=== PATIENT | female | born 1975 | race Two or more races ===

== ENCOUNTER 2025-03-17 15:45 | Emergency (ER) | payer MEDICAID, SELFPAY ==
[2025-03-17 15:47] VITALS: BMI 32.1
[2025-03-17 16:07] VITALS: BP 111/77; PULSE 103; RESP 19; TEMP 37.6; O2SAT 96
--- NOTE | 2025-03-17 16:20 | EDNOTE_ITS ---
ED General RME/HPI General Chief complaint: General Adult/Misc Complain Stated complaint: LUMBS ON LEFT BREAST Time Seen by Provider: 03/17/25 16:17 Arrival date/time: 03/17/25 15:45 Mode of arrival: ambulatory Limitations: no limitations RME / HPI RME / HPI narrative: patient presents with left breast swelling. denies trauma, fever, nipple discharge. no acute changes. unlear how long has had lump in breast. Related Data Previous Rx's ?Medication ?Instructions ?Recorded cyclobenzaprine 5 mg tablet 5 mg PO Q8H PRN muscle spa sm #14 10/30/23 tabs ibuprofen 800 mg tablet (IBU) 800 mg PO Q8H #20 tabs 0 10/30/23 Allergies Allergy/AdvReac Type Severity Reaction Status Date / Time cephalexin (From Keflex) Allergy Verified 03/17/25 15:47 Penicillins Allergy Verified 03/17/25 15:47 ED Exam General Limitations: Present no limitations General appearance: Present alert and in no apparent distress Head Head exam: Present atraumatic and normocephalic Eye Eye exam: Present normal appearance, PERRL and EOMI ENT ENT exam: Present normal exam, normal oropharynx and mucous membranes moist Neck Neck exam: Present normal inspection, full ROM and trachea midline; Absent tenderness Chest Chest inspection: Present normal inspection, symmetric chest wall rise and other (ttp at left lateral breast, mobile 1 cm lesion appreciated , no erythema/fluctuance/crepitus/erythema/nipple retraction/nipple dc) Respiratory Respiratory exam: Present normal lung sounds bilaterally; Absent respiratory distress, wheezes or stridor Cardiovascular Cardiovascular exam: Present regular rate and normal rhythm Abdominal Exam Abdominal exam: Present soft; Absent distention, tenderness, guarding or rebound Extremities Exam Extremities exam: Present normal inspection Back Exam Back exam: Present normal inspection Neurological Exam Neurological exam: Present alert, oriented X3 and CN II-XII intact Psychiatric Psychiatric exam: Present normal affect Skin Skin exam: Present warm, dry and intact Course Quality Measures none Orders Category Date Time Status Ketorolac Inj [Toradol Inj] Med 03/17/25 16:20 Discontinued 15 mg IM X1 ONE Vital Signs Vital signs: Vital Signs Temperature 99.6 F 03/17/25 16:07 Pulse Rate 103 H 03/17/25 16:07 Respiratory Rate 19 03/17/25 16:07 Blood Pressure 111/77 03/17/25 16:07 Pulse Oximetry (%) 96 03/17/25 16:07 Oxygen Delivery Method Room Air 03/17/25 16:07 Discharge Plan Plan Patient Disposition: HOME (Self Care) Prescriptions/Referrals Prescriptions/Med Rec: No Action cyclobenzaprine 5 mg tablet 5 mg PO Q8H PRN (Reason: muscle spasm) Qty: 14 0RF ibuprofen [IBU] 800 mg tablet 800 mg PO Q8H Qty: 20 0RF Problem List Clinical Impression: Acute breast pain Patient/Caregiver Discharge Instructions Education Materials: ED Breast Lump, Uncertain Cause Additional Instructions: It is important that you establish care with your primary care doctor, request an ultrasound of the left breast as well as a mammogram. Return immediately if you develop redness, warmth, fever nipple changes or any other symptom of concern. Print Language: Indonesian Stand Alone Forms: Ashly Award Info., Patient Portal Info Letter MDM Narrative [facility] hospital course: patient w/ mobile area of swelling approx 1 cm in left breast. no signs of infection. patient w/o nipple retraction/dc . no chest pain or diff breathing. No weight loss. advised to follow up with pcp to obtain a breast u/s and mammogram Clinical Information Provided by patient Medical Records Reviewed [facility] Meds/Rx Considered, not Ordered None Labs/Rad/Tests considered, not Ordered None Chronic Illness/Social Conditions which may negatively complicate care or outcome(s)-explain: None or not applicable Lab Interpretation Labs: none Imaging Imaging interpretation: none Medication Administration(s) none Medication Administration History Discontinued Medications Ketorolac Tromethamine (Ketorolac Inj 60 Mg/2 Ml Vial) 15 mg IM X1 ONE Stop: 03/17/25 16:21 Last Admin: 03/17/25 16:31 Dose: 15 mg Documented By: Diagnosis Differential diagnosis: left breat lump Dispositon Disposition: Discharge Home
[2025-03-17] MEDS: KETOROLAC INJ 60 MG/2 ML VIAL 15 MG IM (16:31)
== END 2025-03-17 16:36 | disposition home or self-care (01) ==
PROVIDERS: Emergency Provider Emergency Medicine; PCP Family Medicine
DX: N64.4 Mastodynia (principal); N63.20 Unspecified lump in the left breast, unspecified quadrant
CPT/HCPCS: 96372; 99282; J1885

== ENCOUNTER 2025-04-12 14:36 | Emergency (ER) | payer MEDICAID, SELFPAY ==
[2025-04-12 14:59] VITALS: BP 114/80; PULSE 79; RESP 18; TEMP 36.6; O2SAT 98
--- NOTE | 2025-04-12 15:07 | XR_ITS ---
Examination: Breast ultrasound, unilateral, left Date and time of exam: April 12, 2025 1632 hrs. Indications: Palpable lump left breast note is beginning 3 months ago and 11:00 position, family history breast cancer Technique: Real-time tyson scale ultrasonographic imaging performed left breast including all 4 quadrants as well as nipple retroareolar and axillary region. Findings: Retroareolar solid mass spiculated margins, 19 x 14 x 17 mm Also noted left axillary mass which appears to be an abnormal lymph node, measuring 10 mm Impression: BI-RADS Category 4: Suspicious for malignancy Suspicious mass retroareolar region left breast as well as suspicious left axillary lymph node Biopsy of both lesions is needed to exclude carcinoma These lesions are amenable to sonographically guided breast biopsy for diagnosis Recommend follow-up diagnostic mammography and right breast sonography to complete the workup
[2025-04-12 15:29] LABS: Basophils # (Auto) 0.0 Thou/mm3 (0.0-0.2); Basophils % (Auto) 1 % (0-2.5); Eosinophils # (Auto) 0.2 Thou/mm3 (0.0-0.5); Eosinophils % (Auto) 4 % (0-10); Hematocrit 41.6 % (36.0-46.0); Hemoglobin 14.3 g/dL (12.0-16.0); Immature Granulocytes Auto 0.01 Thou/mm3 (0.00-0.00); Lymphocytes # (Auto) 2.1 Thou/mm3 (1.0-4.8); Lymphocytes % (Auto) 37 % (10-50); Mean Corpuscular HGB Conc 34.4 g/dl (31.0-37.0); Mean Corpuscular Hemoglobin 31.2 pg (25.0-35.0); Mean Corpuscular Volume 91 fL (80-100); Monocytes # (Auto) 0.3 Thou/mm3 (0.0-0.8); Monocytes % (Auto) 5 % (0-12); Neutrophils # (Auto) 3.0 Thou/mm3 (1.8-7.7); Neutrophils % (Auto) 54 % (37-80); Nucleated Red Blood Cell # 0.00 Thou/mm3 (0.00-0.00); Nucleated Red Blood Cell % 0 /100 WBC (0); Platelet Count 223 Thou/mm3 (140-440); RDW Standard Deviation 40.5 fL (36.4-46.3); Red Blood Count 4.58 Miln/mm3 (4.00-5.20); White Blood Count 5.6 Thou/mm3 (3.6-11.0)
[2025-04-12 15:53] LABS: Alanine Aminotransferase 21 U/L (10-49); Albumin, Serum 4.6 gm/dL (3.5-5.0); Albumin/Globulin Ratio 1.4 (1.2-2.2); Alkaline Phosphatase 73 U/L (46-116); Anion Gap 8 (7-16); Aspartate Amino Transferase 26 U/L (0-34); BUN/Creatinine Ratio 10 Ratio (12-20); Bilirubin,Total 0.8 mg/dL (0.3-1.2); Blood Urea Nitrogen 8 mg/dL (9-23); C-Reactive Protein < 0.5 mg/dL (0.0-0.9); Calcium 9.6 mg/dL (8.3-10.6); Calcium (Corrected) 9.6 mg/dL (8.5-10.1); Carbon Dioxide 28.9 mMol/L (20.0-31.0); Chloride 105 mMol/L (98-107); Creatinine (Component) 0.8 mg/dL (0.6-1.3); Globulin 3.3 gm/dL (2.3-3.5); Glucose 90 mg/dL (74-106); Osmolality,Calculated 281 (275-295); Potassium 4.0 mMol/L (3.4-5.1); Sodium 142 mMol/L (136-145); Total Protein 7.9 gm/dL (5.7-8.2); eGFR > 60 See Note
--- NOTE | 2025-04-12 17:00 | PD.EDRME ---
Rapid Medical Screening Exam RME Arrival date/time: 04/12/25 14:36 49-year-old female presents to the Emergency Department for complaint of left breast pain and indentation of the left breast Patient reports she has had outpatient imaging and is scheduled to have mammography done next month Chief Complaint: Chest Pain Time Seen by Provider: 04/12/25 15:07 Vital signs: Vital Signs Temperature 98 F 04/12/25 14:59 Pulse Rate 79 04/12/25 14:59 Respiratory Rate 18 04/12/25 14:59 Blood Pressure 114/80 04/12/25 14:59 Pulse Oximetry (%) 98 04/12/25 14:59 Oxygen Delivery Method Room Air 04/12/25 14:59
--- NOTE | 2025-04-12 17:22 | EDNOTE_ITS ---
ED Chest Pain RME/HPI General Chief Complaint: Chest Pain Stated Complaint: LT BREAST PAIN, LUMP NOTED. PENDING US Time Seen by Provider: 04/12/25 15:07 Arrival date/time: 04/12/25 14:36 49-year-old female presents to the Emergency Department for complaint of left breast pain and indentation of the left breast Patient reports she has had outpatient imaging and is scheduled to have mammography done next month Limitations: no limitations RME / HPI RME / HPI narrative: 04/12/25 14:36 49-year-old female presents to the Emergency Department for complaint of left breast pain and indentation of the left breast Patient reports she has had outpatient imaging and is scheduled to have mammography done next month Related Data Previous Rx's ?Medication ?Instructions ?Recorded cyclobenzaprine 5 mg tablet 5 mg PO Q8H PRN muscle spa sm #14 10/30/23 tabs ibuprofen 800 mg tablet (IBU) 800 mg PO Q8H #20 tabs 0 10/30/23 Allergies Allergy/AdvReac Type Severity Reaction Status Date / Time cephalexin (From Keflex) Allergy Verified 03/17/25 15:47 Penicillins Allergy Verified 03/17/25 15:47 Review of Systems Review of Systems Systems Reviewed: All systems reviewed, normal except as documented Constitutional Constitutional: Reports system reviewed and no additional complaints, except as documented, Denies fever(s) and Denies headache(s) Eyes Eyes: Reports system reviewed and no additional complaints, except as documented and Denies blurry vision ENT Ears, Nose, Mouth, and Throat: Reports system reviewed and no additional complaints, except as documented, Denies headache(s), Denies nasal congestion and Denies nasal discharge Cardiovascular Cardiovascular: Reports system reviewed and no additional complaints, except as documented, Denies chest pain and Denies dyspnea Respiratory Respiratory: Reports system reviewed and no additional complaints, except as documented, Denies chest congestion, Denies cough and Denies dyspnea Gastrointestinal Gastrointestinal: Reports system reviewed and no additional complaints, except as documented and Denies abdominal pain Integumentary/Breasts Skin/Breast: Reports system reviewed and no additional complaints, except as documented, Denies rash and Reports other (Left breast pain) Neurologic Neurologic: Reports system reviewed and no additional complaints, except as documented, Reports as per HPI and Denies headache(s) Past Medical History Past Medical History NEUROLOGIC: Negative Neurological Disorders CARDIAC: Negative Cardiac Disorders or Congestive Heart Failure RESPIRATORY: Negative Chronic Obstructive Pulmonary Disease (COPD) GENITOURINARY: Negative Renal Disease ENDOCRINE: Negative Diabetes Mellitus Type 1 or Diabetes Mellitus Type 2 Social History SMOKING STATUS: Never smoker ED Exam General Limitations: Present no limitations General appearance: Present alert and in no apparent distress Head Head exam: Present atraumatic Eye Eye exam: Present normal appearance, PERRL and EOMI ENT ENT exam: Present normal exam, normal oropharynx and mucous membranes moist Neck Neck exam: Present normal inspection, full ROM and trachea midline Chest Chest inspection: Present normal inspection and symmetric chest wall rise Expanded Chest Exam Breast: left: tenderness (Tenderness) and bilateral: mass (Mass) and other (Abnormalities) Respiratory Respiratory exam: Present normal lung sounds bilaterally Cardiovascular Cardiovascular exam: Present regular rate, normal rhythm and normal heart sounds Abdominal Exam Abdominal exam: Present soft and normal bowel sounds Extremities Exam Extremities exam: Present normal inspection and full ROM Back Exam Back exam: Present normal inspection and full ROM Neurological Exam Neurological exam: Present alert, oriented X3 and CN II-XII intact Psychiatric Psychiatric exam: Present normal affect and normal mood Skin Skin exam: Present warm, dry, intact and normal color Course Quality Measures none Orders Category Date Time Status US breast LT complete Stat Exams 04/12/25 15:07 Completed CBC Stat Lab 04/12/25 15:17 Completed CMP [Comprehensive Metabolic Panel] Stat Lab 04/12/25 15:17 Completed CRP [C-Reactive Protein] Stat Lab 04/12/25 15:17 Completed Vital Signs Vital signs: Vital Signs Temperature 98 F 04/12/25 14:59 Pulse Rate 79 04/12/25 14:59 Respiratory Rate 18 04/12/25 14:59 Blood Pressure 114/80 04/12/25 14:59 Pulse Oximetry (%) 98 04/12/25 14:59 Oxygen Delivery Method Room Air 04/12/25 14:59 O2 saturation 98% room air within normal limits Chest Pain MDM Narrative MDM Narrative:: 49-year-old female presents to the Emergency Department for complaint of left breast pain and indentation of the left breast Patient reports she has had outpatient imaging and is scheduled to have mammography done next month On exam patient well-appearing patient does not appear toxic no acute distress On palpation of the breast patient does have indentation no bruising to the breast no nipple inversion Lab work and imaging obtained Lab works unremarkable imaging is highly concerning for malignancy Patient is instructed to bring a copy of her ultrasound report to her PCP as soon as possible I have emergent mammography biopsy and further evaluation failure to do so or delaying care can result in a poor outcome including Technique: Real-time tyson scale ultrasonographic imaging performed left breast including all 4 quadrants as well as nipple retroareolar and axillary region. Findings: Retroareolar solid mass spiculated margins, 19 x 14 x 17 mm Also noted left axillary mass which appears to be an abnormal lymph node, measuring 10 mm Impression: BI-RADS Category 4: Suspicious for malignancy Suspicious mass retroareolar region left breast as well as suspicious left axillary lymph node Biopsy of both lesions is needed to exclude carcinoma These lesions are amenable to sonographically guided breast biopsy for diagnosis Recommend follow-up diagnostic mammography and right breast sonography to complete the workup Dictated By: Wang Apple MD Patient discharged home in no distress to follow-up with primary care doctor in the next 24 to 48 hours and for any worsening symptoms to return to the ER immediately Patient data External records reviewed:: [facility] previous records Clinical information provided by:: patient Social determinants that could affect healthcare access:: none Patient has the following chronic illnesses:: See history How is presenting disease/condition affected by chronic disease/condition?: uneffected by Evaluation data The following diagnostics were reviewed and interpreted by me:: lab results and radiology exam(s) Lab and/or radiology exams considered but not ordered:: Radiology obtained labs obtained Interpretation Summary: Reviewed by me Medications / Prescriptions Medications or Prescriptions considered but not ordered:: Given Medication administrations:: Given Consultations Consultation(s) initiated? (list below): No Diagnosis Chest Pain Differential Diagnosis: costochondritis and chest pain Most likely diagnosis given after review of the tests above:: Breast pain, malignancy Admission Indicated Admission indicated?: not indicated Admission Request Was there a request for admission?: No Disposition Plan Disposition Plan: Discharge Discharge Attestation Discharge Attestation: The patient and all family members were given an opportunity to ask questions and understood the discharge instructions. Discharge instructions specifically effects, indications for sooner follow up or return to the emergency department, and the expected course of current diagnosis. Patient condition: Stable Discharge Plan Plan Patient Disposition: HOME (Self Care) Discharge Disposition comment: Stable Prescriptions/Referrals Prescriptions/Med Rec: No Action cyclobenzaprine 5 mg tablet 5 mg PO Q8H PRN (Reason: muscle spasm) Qty: 14 0RF ibuprofen [IBU] 800 mg tablet 800 mg PO Q8H Qty: 20 0RF Referrals: Jonathan Broderick MD [Primary Care Provider, Family Practice] - 04/13/25 Problem List Clinical Impression: Breast mass, left Patient/Caregiver Discharge Instructions Education Materials: Breast Anatomy Additional Instructions: You had lab work and imaging completed at this time Your ultrasound is highly suspicious for breast cancer. I gave you a copy of your ultrasound report you must bring this to your primary care doctor soon as possible for further workup biopsies and further treatment failure to do so or delay care will result in a poor outcome. Print Language: Belarusian Stand Alone Forms: Ashly Award Info., Patient Portal Info Letter PA/SEISMIC PROSPECTING OBSERVER Supervising Physician PA/SEISMIC PROSPECTING OBSERVER Supervising Physician: Dr. junior
== END 2025-04-12 17:31 | disposition home or self-care (01) ==
PROVIDERS: Nurse Practitioner Primary Care; Emergency Provider Family Medicine; PCP Family Medicine
DX: N63.42 Unspecified lump in left breast, subareolar (principal)
CPT/HCPCS: 36415; 76641; 80053; 85025; 86140; 99283

== ENCOUNTER → 2025-04-18 | Outpatient (CLI) | payer MEDICAID, SELFPAY ==
--- NOTE | 2025-04-18 | XR_ITS ---
Examination: Diagnostic digital mammography, bilateral Computer aided detection 3-D breast Tomosynthesis, bilateral Date and time of exam: April 18, 2025, 0404 hrs. Compared to outside mammogram March 20, 2025, left breast sonogram 04/18/2025 Technique: Nonmagnified MLO, CC views of the breasts to been obtained, reconstructed from 3-D Tomosynthesis images. R2 computer aided detection program utilized for evaluation of suspicious masses and/or abnormal calcifications. 3-D Tomosynthesis images obtained. Findings: The breasts are heterogeneously dense, which may obscure small masses Focal asymmetry 12 mm in the retroareolar region left breast Height suspicious mass with spiculated margins, at least 27 mm nipple level left breast extreme posterior depth with abnormal linear density extending to the nipple Skin thickening left breast 10 mm nodular asymmetry 3:00 position right breast Impression: BI-RADS 4, suspicious for malignancy 27 mm highly suspicious mass nipple level left breast posterior depth with linear tracking to the nipple 12 mm focal asymmetry in the retroareolar region left breast Recommend follow-up spot tomographic views 10 mm focal asymmetry 2:00 position right breast Biopsy of the 27 mm mass is needed to confirm breast cancer, this mass is amenable to ultrasound-guided breast biopsy for diagnosis.
--- NOTE | 2025-04-18 15:07 | XR_ITS ---
Examination: Breast ultrasound, unilateral, left Date and time of exam: April 14 40,025 1531 hours INDICATIONS: Left breast lump noticed beginning 3 months ago, left breast sonogram 04/12/2025 suspicious mass retroareolar region left breast as well as a suspicious left axillary lymph node, cervical carcinoma diagnosis 10 years ago Technique: Real-time tyson scale ultrasonographic imaging performed left breast including all 4 quadrants as well as nipple retroareolar and axillary region. Findings: Large cyst 5 x 6 mm Retroareolar nodule spiculated margins 17 x 15 x 18 mm IMPRESSION: BI-RADS Category 4: Suspicious for malignancy Suspicious mass retroareolar region left breast, biopsy is needed to exclude breast carcinoma, this mass is amenable to ultrasound-guided breast biopsy for diagnosis Also diagnostic mammography follow-up is needed
== END | disposition home or self-care (01) ==
PROVIDERS: PCP Family Medicine; Referring Provider Physician Assistant; Visit Provider Physician Assistant
DX: R92.343 Mammographic extreme density, bilateral breasts (principal); N64.89 Other specified disorders of breast; N63.42 Unspecified lump in left breast, subareolar
CPT/HCPCS: 76641; 77062; 77066; G0279

== ENCOUNTER → 2025-05-17 | Outpatient (CLI) | payer MEDICAID, SELFPAY ==
[2025-05-15 12:03] LABS: Basophils # (Auto) 0.1 Thou/mm3 (0.0-0.2); Basophils % (Auto) 1 % (0-2.5); Eosinophils # (Auto) 0.3 Thou/mm3 (0.0-0.5); Eosinophils % (Auto) 5 % (0-10); Hematocrit 40.8 % (36.0-46.0); Hemoglobin 13.7 g/dL (12.0-16.0); Immature Granulocytes Auto 0.02 Thou/mm3 (0.00-0.00); Lymphocytes # (Auto) 1.9 Thou/mm3 (1.0-4.8); Lymphocytes % (Auto) 33 % (10-50); Mean Corpuscular HGB Conc 33.6 g/dl (31.0-37.0); Mean Corpuscular Hemoglobin 31.1 pg (25.0-35.0); Mean Corpuscular Volume 93 fL (80-100); Monocytes # (Auto) 0.3 Thou/mm3 (0.0-0.8); Monocytes % (Auto) 5 % (0-12); Neutrophils # (Auto) 3.1 Thou/mm3 (1.8-7.7); Neutrophils % (Auto) 56 % (37-80); Nucleated Red Blood Cell # 0.00 Thou/mm3 (0.00-0.00); Nucleated Red Blood Cell % 0 /100 WBC (0); Platelet Count 250 Thou/mm3 (140-440); RDW Standard Deviation 42.0 fL (36.4-46.3); Red Blood Count 4.41 Miln/mm3 (4.00-5.20); White Blood Count 5.6 Thou/mm3 (3.6-11.0)
[2025-05-15 12:14] LABS: INR 1.0 (0.9-1.3); Partial Thromboplastin Time 24.5 Seconds (22.0-36.0); Prothrombin Time 10.5 Seconds (9.0-12.2)
[2025-05-15 12:20] LABS: HCG,Qualitative Serum Negative
--- NOTE | 2025-05-17 09:30 | XR_ITS ---
Examinations: Ultrasound-guided percutaneous breast biopsy, retroareolar left breast nodule Breast sonography Limited. Exam date and time: May 17, 2025, 1023 hours INDICATIONS: BI-RADS 4 suspicious mass retroareolar region left breast on left breast sonogram 04/18/2025. Informed consent provided. Technique: A timeout was completed verifying correct patient, procedure, site, positioning, and special equipment if applicable Informed consent provided. The patient was placed in a supine position for the breast biopsy. Sonographic images of the breast were performed for localization of the suspicious nodule The patient's breast was prepped and draped in sterile fashion. Maximum sterile barrier technique, hand hygiene, ultrasound sterile technique 1% lidocaine was used to anesthetize the skin and breast adjacent to the suspicious nodule. Utilizing ultrasonographic guidance, 8 core biopsies were obtained of the suspicious nodule utilizing an 18-gauge BioPince needle. The specimens appears satisfactory. US guided breast biopsy marker placement. Estimated blood loss 3 cc. The patient tolerated the procedure well and there were no complications. Impression: Successful ultrasound-guided percutaneous breast biopsy, left breast retroareolar mass. Ultrasound guided breast biopsy marker placement.
--- NOTE | 2025-05-17 11:03 | PC.NURSE ---
MD ORDERED TO MONITOR PATIENT FOR 30 MINS FOR PAIN
[2025-05-17 11:05] VITALS: BP 116/69; PULSE 77; RESP 18; TEMP 36.7; O2SAT 99
[2025-05-17] MEDS: ACETAMINOPHEN 325 MG TABLET 650 MG PO (11:10)
[2025-05-17 11:15] VITALS: BP 113/75; PULSE 72; RESP 20; O2SAT 99
--- NOTE | 2025-05-17 11:16 | PC.NURSE ---
PATIENT PAIN IS TOLERABLE. EDUCATION GIVEN TO PATIENT. PATIENT EXPRESSED VERBAL UNDERSTANDING. MD SULLIVAN PATIENT TO GO HOME.
== END | disposition home or self-care (01) ==
LOC: SIRX 05-18 08:17
PROVIDERS: Radiology Diagnostic Radiology
DX: N63.42 Unspecified lump in left breast, subareolar (principal)
CPT/HCPCS: 19083; 36415; 84703; 85025; 85610; 85730; A4648; A4649; A9270

== ENCOUNTER 2025-06-07 16:59 | Emergency (ER) | payer MEDICAID, SELFPAY ==
[2025-06-07 17:00] VITALS: BMI 29.0
[2025-06-07 17:18] VITALS: BP 107/74; PULSE 91; RESP 18; TEMP 36.8; O2SAT 96
--- NOTE | 2025-06-07 17:26 | EDNOTE_ITS ---
ED General RME/HPI General Chief complaint: General Adult/Misc Complain Stated complaint: L BREAST PAIN Time Seen by Provider: 06/07/25 17:07 Arrival date/time: 06/07/25 16:59 49-year-old female with diagnosis of cancer presents to the emergency dept today for complaints of left breast pain patient does report she has follow-up with specialist but does not have any pain medication Limitations: no limitations Related Data Previous Rx's ?Medication ?Instructions ?Recorded cyclobenzaprine 5 mg tablet 5 mg PO Q8H PRN muscle spa sm #14 10/30/23 tabs ibuprofen 800 mg tablet (IBU) 800 mg PO Q8H #20 tabs 0 10/30/23 hydrocodone 5 mg-acetaminophen 325 1 tab PO BID PRN pa in #10 tabs 06/07/25 mg tablet ibuprofen 800 mg tablet 800 mg PO TID PRN pain #30 t abs 06/07/25 Allergies Allergy/AdvReac Type Severity Reaction Status Date / Time cephalexin (From Keflex) Allergy Verified 06/07/25 17:01 Penicillins Allergy Verified 06/07/25 17:01 Review of Systems Review of Systems Systems Reviewed: All systems reviewed, normal except as documented Constitutional Constitutional: Reports system reviewed and no additional complaints, except as documented, Denies fever(s) and Denies headache(s) Eyes Eyes: Reports system reviewed and no additional complaints, except as documented and Denies blurry vision ENT Ears, Nose, Mouth, and Throat: Reports system reviewed and no additional complaints, except as documented, Denies headache(s), Denies nasal congestion and Denies nasal discharge Cardiovascular Cardiovascular: Reports system reviewed and no additional complaints, except as documented, Denies chest pain and Denies dyspnea Respiratory Respiratory: Reports system reviewed and no additional complaints, except as documented, Denies chest congestion, Denies cough and Denies dyspnea Gastrointestinal Gastrointestinal: Reports system reviewed and no additional complaints, except as documented and Denies abdominal pain Integumentary/Breasts Skin/Breast: Reports system reviewed and no additional complaints, except as documented, Denies rash and Reports breast pain Neurologic Neurologic: Reports system reviewed and no additional complaints, except as documented, Reports as per HPI and Denies headache(s) Past Medical History Past Medical History NEUROLOGIC: Negative Neurological Disorders CARDIAC: Negative Cardiac Disorders or Congestive Heart Failure RESPIRATORY: Negative Chronic Obstructive Pulmonary Disease (COPD) GENITOURINARY: Negative Renal Disease ENDOCRINE: Negative Diabetes Mellitus Type 1 or Diabetes Mellitus Type 2 Social History SMOKING STATUS: Never smoker ED Exam General Limitations: Present no limitations General appearance: Present alert and in no apparent distress Head Head exam: Present atraumatic Eye Eye exam: Present normal appearance, PERRL and EOMI ENT ENT exam: Present normal exam, normal oropharynx and mucous membranes moist Neck Neck exam: Present normal inspection, full ROM and trachea midline Chest Chest inspection: Present normal inspection and symmetric chest wall rise Respiratory Respiratory exam: Present normal lung sounds bilaterally Cardiovascular Cardiovascular exam: Present regular rate, normal rhythm and normal heart sounds Abdominal Exam Abdominal exam: Present soft and normal bowel sounds Extremities Exam Extremities exam: Present normal inspection and full ROM Back Exam Back exam: Present normal inspection and full ROM Neurological Exam Neurological exam: Present alert, oriented X3 and CN II-XII intact Psychiatric Psychiatric exam: Present normal affect and normal mood Skin Skin exam: Present warm, dry, intact and normal color Course Quality Measures none Orders Category Date Time Status Ketorolac Inj [Toradol Inj] Med 06/07/25 17:26 Discontinued 30 mg IM X1 ONE Vital Signs Vital signs: Vital Signs Temperature 98.3 F 06/07/25 17:18 Pulse Rate 91 06/07/25 17:18 Respiratory Rate 18 06/07/25 17:18 Blood Pressure 107/74 06/07/25 17:18 Pulse Oximetry (%) 96 06/07/25 17:18 Oxygen Delivery Method Room Air 06/07/25 17:18 O2 saturation 96% room air within normal limits Discharge Plan Plan Patient Disposition: HOME (Self Care) Discharge Disposition comment: Stable Prescriptions/Referrals Prescriptions/Med Rec: New ibuprofen 800 mg tablet 800 mg PO TID PRN (Reason: pain) Qty: 30 0RF hydrocodone-acetaminophen 5-325 mg tablet 1 tab PO BID MDD 10 PRN (Reason: pain) Qty: 10 0RF No Action cyclobenzaprine 5 mg tablet 5 mg PO Q8H PRN (Reason: muscle spasm) Qty: 14 0RF ibuprofen [IBU] 800 mg tablet 800 mg PO Q8H Qty: 20 0RF Problem List Clinical Impression: Ductal carcinoma in situ (DCIS) of left breast, Breast pain, left Patient/Caregiver Discharge Instructions Education Materials: Breast Anatomy Additional Instructions: Please follow-up with your oncologist as discussed for worsening symptoms or concerns return immediately Print Language: Kyrgyz Stand Alone Forms: Ashly Award Info., Patient Portal Info Letter PA/TELECOMMUNICATIONS LINE MECHANIC Supervising Physician PA/TELECOMMUNICATIONS LINE MECHANIC Supervising Physician: Dr. junior MDM Narrative MDM hospital course (for use when minimal MDM required): 49-year-old female with diagnosis of cancer presents to the emergency dept today for complaints of left breast pain patient does report she has follow-up with specialist but does not have any pain medication On exam patient well-appearing does not appear ill or toxic no acute stress I reviewed the patient's outpatient lab work imaging and pathology Patient given Toradol for pain discharge home with [place] Explained to the patient she should follow-up with her specialist for worsening symptoms return immediately. Clinical Information Provided by: patient Medical Records reviewed [facility] Meds/Rx considered, not ordered describe: Given Labs/Rad/Tests considered, not ordered None Chronic Illness/Social Conditions which may negatively complicate care or outcome(s)-explain: None or not applicable EKG EKG not done Labs Labs: none Imaging Imaging interpretation: none Medication Administration(s) Medication Administration History Discontinued Medications Ketorolac Tromethamine (Ketorolac Inj 30 Mg/Ml Vial) 30 mg IM X1 ONE Stop: 06/07/25 17:27 Given Diagnosis Differential Diagnosis ED Complaint MDM: Breast pain, breast cancer
[2025-06-07] MEDS: KETOROLAC INJ 30 MG/ML VIAL IM (17:44)
== END 2025-06-07 17:51 | disposition home or self-care (01) ==
PROVIDERS: Emergency Provider Nurse Practitioner Primary Care; PCP Family Medicine
DX: D05.12 Intraductal carcinoma in situ of left breast (principal); N64.4 Mastodynia
CPT/HCPCS: 96372; 99282; J1885

== ENCOUNTER 2025-06-14 08:04 | Outpatient (RCR) | payer MEDICAID, SELFPAY ==
--- NOTE | 2025-06-05 23:37 | CTCCONSULT_ITS ---
Patient: EMMA CASTAÑEDA : 1975 MR#: [id number] Page 2 of 3 CONSULTATION NOTE DATE OF CONSULTATION: 05/29/2025 NAME: EMMA CASTAÑEDA ACCOUNT: [id number] : 1975 AGE: 49 REFERRING PHYSICIAN: Chinedu Finley MD PRIMARY PHYSICIAN: REASON FOR VISIT: New left breast invasive ductal carcinoma ONCOLOGY HISTORY: DIAGNOSIS: Malignant neoplasm of overlapping sites of left female breast [ICD10] C50.812 DATE OF DIAGNOSIS: 05/17/2025 STAGE/TNM: At least stage III TREATMENT HISTORY: Care?Plan Start?Date Cycle Day Intent AC?4?cy?DD?Taxol?wkly?12?wks 05/29/2025 1 7 Induction-Primary HISTORY OF PRESENT ILLNESS: 49-year-old female presents with left breast mass. Patient was seen at the ER on 03/17/2025 for lumps in the left breast . She has since Completed an ultrasound of the left breast which showed Relroareolar solid mm spiculnted margins, 19 x 14 x 17 mm. Then is a l left axillary lymph node measuring 10 mm. OTHER MEDICAL HISTORY/CONDITIONS: Left breast invasive ducatal carcinoma - dx 05/17/25 Cervical cancer - 10yrs ago Depression/PTSD Asthma RLE vein surgery - 04/19; LLE vein sx sched 07/06/25 Lumbar spine surgery T-11-L-1 - January 2023 Abd hysterectomy - 2013 C- section x 4 - Last 1997 Cholecystectomy - 1997 Left eye surgery - as child FAMILY HISTORY: Mother:?Pat?cousin?-?colon?-?dx?43 Sibling: Pat cousin - breast-dx40's; pat amny-afnxla-fs 60's Children: Dtr- cervical -HPV - 25; Mat ifua-zvzrcms-hv 40's Cancer History:?Mat Lxexjtozyhb-wuzbpxvo-kb 52; pat gramdmother-unknown ca SOCIAL HISTORY: Occupational?History:?Unemployed Education?Level:?Completed 11th grade Marital?Status:? Tobacco?Use:?Denies ETOH Use:?Quit 5 yrs - Drank 18-30 beers / day x 20yrs Drug?Note:?Marijuana -Quit 10yrs ago - Socailly x 10yrs Social?History?Note:?Lives?with? DISTRESSER HISTORY: Menarche?-?Age:?10 Menopause:?10?yrs?ago Hormone?Use:?Norplant?in?past :?4 Live?Births:?3 Age?1st?:?[age] MEDICATIONS: 1. albuterol-budesonide - 90-80 mcg/actuation 1 Puff(s) Every 4 Hours 2. DULoxetine - 60 mg 1 Capsule Daily 3. gabapentin - 300 mg 1 Capsule Twice a Day 4. prazosin - 1 mg 1 Capsule Every day before sleep 5. traMADol - 50 mg 1 tab Twice a Day 6. Tylenol - 325 mg 2 tab As directed 7. Zepbound - 10 mg/0.5 mL Weekly?Palabra Meds? Medications Last Reconciled by Anna Moses RN on 05/29/2025 ALLERGIES: Penicillins; cephalexin; cephalexin REVIEW OF SYSTEMS: A complete 14-point review of systems was performed and is negative except as noted in interval history. PHYSICAL EXAMINATION: VITAL SIGNS: Temperature?97.5, B/P?113/74, Height?62?inches, Oxygen?Saturation?95% Weight?166?lbs PAIN: 8 - Very severe pain ECOG Performance Status: 0 - Asymptomatic and fully active GENERAL APPEARANCE: Appears well, in no apparent distress, appropriately interactive. HEENT: Normocephalic, no temporal wasting, normal conjunctiva, no scleral icterus, normal hearing, lips without lesions, neck normal range of motion. CARDIOVASCULAR: Not assessed. PULMONARY: Normal respiratory effort, no respiratory distress or use of accessory muscles, speaking in full sentences, no tachypnea. EXTREMITIES: No pedal edema or cyanosis. SKIN: Normal skin appearance. NEUROLOGIC: Alert and oriented x4. PSHYCHIATRIC: Appropriate affect, mood normal, behavior normal, intact thought and speech. Breast examination reveals about 5 cm mass in the left breast seems to be adhering to the chest wall LABORATORY DATA: I have personally reviewed and interpreted each of the patient?s relevant lab tests, abnormal findings are below: Date ASSESSMENT/PLAN: Left breast mass Discussed with patient that she has locally advanced cancer and patient want to conserve her breast Option to get a negative margin is to do neoadjuvant chemotherapy Patient has a palpable lymph node and a large mass Neoadjuvant chemotherapy ordered Surgical and radiation referral placed 6 echocardiogram port catheter Start chemo CARRI Ordered staging imaging as patient have locally advanced cancer to rule out metastatic disease ORDERS: Order # Description [id number] CT Scan + Chest + Abdomen and Pelvis + With Contrast [id number] Comprehensive Metabolic Panel - 12 + CBC with Auto Diff + CA 15-3 + [id number] Estradiol + Gonadotropin (Fsh) + Gonadotropin; Luteinizing Hormone (Lh) [id number] MD Follow Up 4 Week [id number] [facility] Hereditary Cancer Test RETURN TO CLINIC: I reviewed the diagnosis, prognosis, and recommended treatment/procedure options with the patient (and/or their legal admitting representative), including the potential benefits, risks, side effects and alternative therapies. We also discussed the option of no treatment and the possibility of clinical trial participation, if applicable. All questions were addressed, and they demonstrated understanding. They provided informed consent to proceed with the proposed plan of care. BILLING AND COMPLIANCE: I reviewed external records from providers outside my specialty as summarized above. I spent a total of 50 minutes on this patient?s care on the day of their visit excluding time spent related to any billed procedures. This time includes time spent with the patient as well as time spent documenting in the medical record, reviewing patients records and tests, obtaining history, placing orders, communicating with other healthcare professionals, counseling the patient, family or caregiver, and/or care coordination for the diagnoses above. Electronically Signed by: Saurav Forde MD T: 11:34 PM CC: PCP: Referring: Chinedu Finley This document was completed utilizing speech recognition software. Grammatical errors, random word insertions, pronoun errors, and incomplete sentences are an occasional consequence of this system due to software limitations, ambient noise, and hardware issues. Any formal questions or concerns about the content, text or information contained within the body of this dictation should be directly addressed to the provider for clarification.
== END 2025-06-24 23:59 | disposition home or self-care (01) ==
LOC: SCTC 08:04
PROVIDERS: Visit Provider Radiology Therapeutic Radiology
DX: C50.112 Malignant neoplasm of central portion of left female breast (principal); Z17.0 Estrogen receptor positive status [ER+]; Z17.21 Progesterone receptor positive status
CPT/HCPCS: 99213; G0463

== ENCOUNTER 2025-06-27 07:39 | Outpatient (CLI) | payer MEDICAID, SELFPAY ==
[2025-06-26 08:53] LABS: Basophils # (Auto) 0.0 Thou/mm3 (0.0-0.2); Basophils % (Auto) 1 % (0-2.5); Eosinophils # (Auto) 0.2 Thou/mm3 (0.0-0.5); Eosinophils % (Auto) 4 % (0-10); Hematocrit 42.0 % (36.0-46.0); Hemoglobin 14.0 g/dL (12.0-16.0); Immature Granulocytes Auto 0.01 Thou/mm3 (0.00-0.00); Lymphocytes # (Auto) 1.4 Thou/mm3 (1.0-4.8); Lymphocytes % (Auto) 28 % (10-50); Mean Corpuscular HGB Conc 33.3 g/dl (31.0-37.0); Mean Corpuscular Hemoglobin 30.8 pg (25.0-35.0); Mean Corpuscular Volume 92 fL (80-100); Monocytes # (Auto) 0.2 Thou/mm3 (0.0-0.8); Monocytes % (Auto) 4 % (0-12); Neutrophils # (Auto) 3.3 Thou/mm3 (1.8-7.7); Neutrophils % (Auto) 63 % (37-80); Nucleated Red Blood Cell # 0.00 Thou/mm3 (0.00-0.00); Nucleated Red Blood Cell % 0 /100 WBC (0); Platelet Count 261 Thou/mm3 (140-440); RDW Standard Deviation 41.8 fL (36.4-46.3); Red Blood Count 4.55 Miln/mm3 (4.00-5.20); White Blood Count 5.2 Thou/mm3 (3.6-11.0)
[2025-06-26 08:58] LABS: Anion Gap 9 (7-16); BUN/Creatinine Ratio 15 Ratio (12-20); Blood Urea Nitrogen 12 mg/dL (9-23); Calcium 9.9 mg/dL (8.3-10.6); Carbon Dioxide 28.2 mMol/L (20.0-31.0); Chloride 104 mMol/L (98-107); Creatinine (Component) 0.8 mg/dL (0.6-1.3); Glucose 91 mg/dL (74-106); Osmolality,Calculated 280 (275-295); Potassium 4.0 mMol/L (3.4-5.1); Sodium 141 mMol/L (136-145); eGFR > 60 See Note
[2025-06-26 09:15] LABS: INR 1.0 (0.9-1.3); Partial Thromboplastin Time 26.2 Seconds (22.0-36.0); Prothrombin Time 10.3 Seconds (9.0-12.2)
[2025-06-27] VITALS (16 sets, daily range): BP systolic 113–146; BP diastolic 72–94; PULSE 67–94; RESP 11–20; TEMP 36.2–36.3; O2SAT 94–100; BMI 29.9
--- NOTE | 2025-06-27 09:00 | XR_ITS ---
Examination: IR venous implantation Port-A-Cath. Ultrasound-guided needle placement right internal jugular vein. Fluoroscopy AP Chest, portable single view Exam date and time: June 27, 2025, 0958 hours INDICATIONS: Breast carcinoma diagnosis requiring long-term intravenous chemotherapy. Informed consent provided Technique: A timeout was completed, verifying correct patient, procedure, site, positioning, and special equipment if applicable The patient was placed in a dependent position appropriate for central line placement based on the vein to be cannulated. The patient's right neck was prepped and draped in sterile fashion. Maximum Sterile Barrier Technique used including cap, mask, sterile gown, sterile gloves, and sterile full body drape. If ultrasound technique used: sterile gel and sterile probe covers. Hand Hygiene performed using proper scrub, soap and water, or alcohol-based hand rub. Site right portable ultrasound apparatus utilized to confirm patency of the right internal jugular vein Utilizing ultrasonographic guidance successful 21-gauge needle puncture into the right internal jugular vein Ultrasound images were recorded and stored. Successful micropuncture with a 21-gauge needle was performed. 0.18 wire guide was introduced into the IVC under fluoroscopic guidance. The wires is then exchanged for a 0.25 J-wire guide placed in the vena cava. Utilizing blunt dissection subcutaneous pocket formed in the upper right chest Port-A-Cath reservoir connected to an 8 Cook Islander 21 cm Port-A-Cath line placed through the venous sheath into the superior vena cava in proper position under fluoroscopic guidance Estimated blood loss 4 cc. Findings: Under fluoroscopy, the tip of the catheter is in good position in the vena cava. Portable chest x-ray, post Port-A-Cath insertion Impression: Successful ultrasound-guided needle placement right internal jugular vein. Successful IR venous implantation Port-A-Cath Fluoroscopy 0.1-minute radiation dose 1.30 mGy 1 spot fluoroscopic chest. AP portable chest completion procedure demonstrates satisfactory position Port-A-Cath tip SVC. May use Port-A-Cath
--- NOTE | 2025-06-27 09:54 | PC.NURSE ---
consulted Dr. Apple regarding patient's allergies to PCN (fever and rash) and cephalexin (fever and swelling all over body) and pharmacist recommendations, Dr. Apple decided not to use ancef for port procedure, no new orders received at this time.
[2025-06-27] MEDS: SODIUM CHLORIDE 0.9% 500 ML 500 ML 20 ML IV (10:24)
[2025-06-27] MEDS: fentaNYL CIT INJ 50 mCg/ML AMP 2ML 100 MCG IVP (10:52)
[2025-06-27] MEDS: LIDOCAINE 1% W/EPI 1:100K 20 ML VIAL 5 ML INFL (10:54)
[2025-06-27] MEDS: LIDOCAINE INJ PF 1% 30 ML VIAL 4 ML INFL (10:54)
[2025-06-27] MEDS: HEPARIN SOD LOCK SYR 100 UNIT/ML 500 UNIT STFIELD (10:54)
[2025-06-27] MEDS: fentaNYL CIT INJ 50 mCg/ML AMP 2ML 25 MCG IVP (11:01)
[2025-06-27] MEDS: ONDANSETRON INJ 2 MG/ML INJ 2 ML 4 MG IVP (12:11)
--- NOTE | 2025-06-27 12:57 | PC.NURSE ---
1123 patient is awake, alert, breathing unlabored, s/p port placement to right IJ, dressing to right chest dry with no bleeding, paitent transferred to rn cardiac cath for 1 hour recovery. 1211 patient ate hamburger lunch tray and had nausea, zofran given 1248 patient awake, alert, breathing unlabored, dressing to chest dry with no bleeding, discharge instructions given to patient and spouse, patient discharged home in wheelchair with all belongings. nausea resolved with zofran.
== END 2025-06-27 12:48 | disposition home or self-care (01) ==
PROVIDERS: Radiology Diagnostic Radiology; Referring Provider Internal Medicine Hematology & Oncology; Visit Provider Internal Medicine Hematology & Oncology
DX: C50.812 Malignant neoplasm of overlapping sites of left female breast (principal)
CPT/HCPCS: 36415; 76937; 77001; 80048; 85025; 85610; 85730; A4649; C1769; C1788; C1894; J1642; J2405; J3010; J3490; J7050; J7999

== ENCOUNTER → 2025-06-28 | Outpatient (CLI) | payer MEDICAID, SELFPAY ==
--- NOTE | 2025-06-28 09:30 | ECHO_ITS ---
Patient Info Name: Shanika Prasad Age: 50 years : 1975 Gender: Female Ht: 157 cm Wt: 73 kg BSA: 1.81 m2 BP: 118 / 95 mmHg HR: 70 bpm Heart Rhythm: Sinus Rhythm Exam Date: 06/28/2025 9:28 AM Admit Date: 06/28/2025 Site: [facility] Room Number: ECHO Patient Status: O Exam Type: CA echo doppler complete City Auditor: Aziza Villavicencio Ordering Physician: Saurav Forde Referring Physician: Saurav Forde Study Info Indications Malignant neoplasm of overlapping sites of left female breas - Primary Location: [facility] Left Ventricular Outflow Tract Name Value Normal LVOT 2D LVOT Diameter 1.9 cm LVOT Doppler LVOT Peak Velocity 90 cm/s LVOT Mean Gradient 2 mmHg LVOT VTI 16 cm LVOT VTI/AV VTI Ratio 0.7 LVOT Stroke Volume 46 ml Pulmonic Valve Name Value Normal PV Doppler PV Peak Velocity 87 cm/s PV Regurgitation Doppler MO Peak End Diastolic Velocity 103 cm/s Mitral Valve Name Value Normal MV Doppler MV Decel Travis 183 cm/s2 MV PHT 74 ms MV Area (PHT) 3.0 cm2 4.0-5.0 MV Diastolic Function MV E Peak Velocity 46 cm/s MV A Peak Velocity 58 cm/s MV E/A 0.8 MV Annular TDI MV Septal e' Velocity 6.2 cm/s MV E/e' (Septal) 7.5 MV Lateral e' Velocity 8.5 cm/s MV E/e' (Lateral) 5.5 MV e' Average 7.35 cm/s MV E/e' (Average) 6.5 Tricuspid Valve Name Value Normal TV Regurgitation Doppler TR Peak Velocity 152 cm/s Estimated PAP/RSVP RA Pressure 3 mmHg <=5 PA Systolic Pressure 12 mmHg <36 RV Systolic Pressure 12 mmHg <36 TV Annular TDI TV Lateral Thi s' Velocity 11.0 cm/s >=9.5 Aortic Valve Name Value Normal AV 2D/MM AV Cusp Sep (MM) 1.4 cm AV Doppler AV Peak Velocity 128 cm/s AV Mean Gradient 3 mmHg AV VTI 24 cm AV Area (Cont Eq VTI) 1.9 cm2 >=3.0 AV Area (Cont Eq Jovani) 2.0 cm2 AV DI (Jovani) 0.70 AV Regurgitation 2D LVOT Area 2.8 cm2 Ventricles Name Value Normal LV Dimensions 2D/MM IVS Diastolic Thickness (2D) 0.7 cm 0.6-0.9 LVID Diastole (2D) 4.9 cm 3.8-5.2 LVIW Diastolic Thickness (2D) 1.0 cm 0.6-0.9 LVID Systole (2D) 3.1 cm 2.2-3.5 LVOT Diameter 1.9 cm LV Mass (2D Cubed) 141.91 g 67.00-162.00 LV Mass Index (2D Cubed) 79 g/m2 43-95 Relative Wall Thickness (2D) 0.41 <=0.42 IVS/LVIW Diastolic Thickness (2D) 0.70 0.00-1.50 LV Fractional Shortening/Ejection Fraction 2D/MM LV Fractional Shortening (2D) 37 % 27-45 LV EF (2D Teichholz) 66 % RV Dimensions 2D/MM TV Lateral Thi s' Velocity 11.0 cm/s >=9.5 Atria Name Value Normal LA Dimensions LA Volume (4C A-L) 20 ml LA Volume (BP A-L) 18 ml Left Ventricle Left ventricular chamber dimension is normal. Left ventricular systolic function is normal with visually estimated ejection fraction of 60-65%. There is normal geometry noted in the left ventricle. Left ventricular segmental wall motion is normal. There is grade I diastolic dysfunction in the left ventricle. Right Ventricle Right ventricular chamber dimension is normal. Right ventricular systolic function is normal. Left Atrium Left atrial chamber dimension is normal. Right Atrium Right atrial chamber dimension is normal. Aortic Valve The aortic valve is trileaflet. There is no aortic valve sclerosis. There is no aortic valve stenosis with a peak velocity of 128 cm/s, mean gradient of 3 mmHg, and aortic valve area of 1.9 cm2. There is no aortic valve regurgitation. Pulmonic Valve The pulmonic valve is normal. There is no pulmonic valve stenosis. There is no pulmonic regurgitation. Mitral Valve The mitral valve has normal leaflets. There is no mitral valve stenosis. There is trace mitral valve regurgitation. Tricuspid Valve The tricuspid valve leaflets are normal. There is no tricuspid valve stenosis. There is trace tricuspid valve regurgitation. No pulmonary hypertension, estimated pulmonary arterial systolic pressure is 12 mmHg and systemic blood pressure of 118 mmHg in systole. Pericardium/Pleural The pericardium appears normal. There is no pericardial effusion. No pleural effusion visualized. Inferior Vena Cava Normal inferior vena cava with >50% collapse upon inspiration consistent with normal right atrial pressure, 3 mmHg. Aorta The aortic measurements are indexed to age and body surface area. The aortic root at the sinus of Valsalva is not well visualized. The prox ascending aorta is not well visualized. Summary 1. Left ventricle size is normal and systolic function is normal. Estimated ejection fraction is 60-65%. There is grade I diastolic dysfunction. 2. Right ventricle chamber size is normal and systolic function is normal. Estimated RVSP is 12 mmHg. 3. There is trace mitral valve regurgitation. 4. There is trace tricuspid valve regurgitation. 5. Normal IVC with estimated RA pressure 3 mmHg. Report Signatures Finalized by Shanda Gamboa on 06/28/2025 06:00 PM
== END | disposition home or self-care (01) ==
LOC: SDIM 09:12
PROVIDERS: Referring Provider Internal Medicine Hematology & Oncology; Visit Provider Internal Medicine Hematology & Oncology
DX: I08.1 Rheumatic disorders of both mitral and tricuspid valves (principal); I50.30 Unspecified diastolic (congestive) heart failure; C50.812 Malignant neoplasm of overlapping sites of left female breast
CPT/HCPCS: 93306

== ENCOUNTER → 2025-07-05 | Outpatient (CLI) | payer MEDICAID, SELFPAY ==
--- NOTE | 2025-07-05 12:55 | XR_ITS ---
Examination: Breast ultrasound, unilateral, right complete Date and time of exam: July 05, 2025, 1312 hours INDICATIONS: Mammogram 04/18/2025 suspicious 10 mm nodular asymmetry 3 o'clock position right breast Technique: Real-time tyson scale ultrasonographic imaging performed right breast including all 4 quadrants as well as nipple retroareolar and axillary region. Findings: Retroareolar cyst 6 x 4 mm No solid nodules IMPRESSION: BI-RADS Category 2: Benign findings
--- NOTE | 2025-07-05 12:55 | XR_ITS ---
Examination: Diagnostic digital mammography, unilateral, right Computer aided detection 3-D breast Tomosynthesis, unilateral Date and time of exam: 07/05/2025, 1:33 p.m. Comparisons: 04/18/2025 Indications: Further evaluation of focal asymmetry at 3:00 seen on mammogram dated 04/18/2025 Technique: Nonmagnified MLO, CC views of the right breast have been obtained, reconstructed from 3-D Tomosynthesis images. R2 computer aided detection program utilized for evaluation of suspicious masses and/or abnormal calcifications. 3-D Tomosynthesis images obtained. Technologist: Findings: The breasts are heterogeneously dense, which may obscure small masses. No evidence of abnormal masses or suspicious calcifications. Previously described abnormality does not persist on spot compression views and represents superimposition of normal fibroglandular tissue Impression: BI-RADS category 1: Negative findings (within normal) Recommend 1 year follow-up mammogram
== END | disposition home or self-care (01) ==
PROVIDERS: Referring Provider Surgery; Visit Provider Surgery
DX: R92.311 Mammographic fatty tissue density, right breast (principal)
CPT/HCPCS: 76641; 77061; 77065; G0279

== ENCOUNTER 2025-07-11 14:42 | Inpatient (IN) | payer MEDICAID, SELFPAY ==
[2025-07-11] VITALS (7 sets, daily range): BP systolic 103–114; BP diastolic 68–76; PULSE 87–118; RESP 16–20; TEMP 36.7–39.1; O2SAT 92–97; BMI 29.6; BMI 29.7
--- NOTE | 2025-07-11 15:03 | XR_ITS ---
EXAMINATION: AP chest single view TECHNIQUE: AP portable upright chest single view Date and time: July 11, 2025, 1603 hours INDICATIONS: Weakness coughing fever today. FINDINGS: Right Port-A-Cath tip satisfactory position Normal heart size No pneumonia or pulmonary edema IMPRESSION: No pneumonia or pulmonary edema
--- NOTE | 2025-07-11 15:10 | EKG_ITS ---
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
--- NOTE | 2025-07-11 15:19 | EDNOTE_ITS ---
<Statement entered by Ivy Steve MD - 07/26/25 17:54> I, Ivy Steve MD, have reviewed the history, exam, and assessment of the patient. I have evaluated the patient independently and agree with the plan of care documented by [ ]. All diagnostic studies were reviewed and discussed. I confirm the diagnosis as documented by the Resident. I was present during the Medical Decision Making for this patient. The patient's plan of care was created between myself and the Resident and consistent with our discussion of the patient's case. ED General RME/HPI General Chief complaint: Weakness Stated complaint: WEAK, COUGH, FEVER Time Seen by Provider: 07/11/25 15:06 Arrival date/time: 07/11/25 14:42 Related Data Previous Rx's ?Medication ?Instructions ?Recorded hydrocodone 5 mg-acetaminophen 325 1 tab PO BID PRN pa in #10 tabs 06/07/25 mg tablet ibuprofen 800 mg tablet 800 mg PO TID PRN pain #30 t abs 06/07/25 Allergies Allergy/AdvReac Type Severity Reaction Status Date / Time cephalexin (From Keflex) Allergy Verified 07/11/25 14:45 Penicillins Allergy Verified 07/11/25 14:45 ED Exam Narrative Physical exam: Physical Exam: GENERAL: Awake, answering questions appropriately, appears stated age, in mild distress secondary to chest discomfort HEENT: NC/AT. Moist mucosa. PERRLA/EOMI. anicteric sclera with no conjunctival pallor noted. CARDIO: Tachycardic, no obvious murmurs, no JVD. Patient's discomfort worsens with palpation and does not change with change in positioning. PULM: No coughing or visible SOB. Lungs CTA B/L. GI: Abdomen soft, NT/ND, +BS. SKIN/MSK/EXT: Right-sided Port-A-Cath site appears slightly red and warm without any exudation. No wounds/discoloration/rashes/edema/amputations. +Pedal pulses present B/L. NEURO: Oriented x3, Moves extremities x4, no focal neurologic deficits noted. Course Quality Measures none Orders Category Date Time Status Bedside COVID-19 Antigen Test NOW Care 07/11/25 15:03 Active Bedside Influenza A&B Antigen Test NOW Care 07/11/25 15:03 Completed COVID-19 Screening Questionnaire NOW Care 07/11/25 17:28 Active Decision to Admit X1 Care 07/11/25 17:28 Active EKG (ED ONLY) *Do not use* NOW Care 07/11/25 15:10 Completed In and Out Catheter X1 Care 07/11/25 16:40 Active May Access Port-A-Cath NOW Care 07/11/25 15:15 Ordered Neutropenic precautions NOW Care 07/11/25 16:22 Active EKG (ED Only) Stat Exams 07/11/25 15:10 Draft XR chest 1V portable Stat Exams 07/11/25 15:03 Completed Blood Culture (Lab) Stat Lab 07/11/25 16:01 Received CBC Stat Lab 07/11/25 15:50 Completed Comprehensive Metabolic Panel Stat Lab 07/11/25 15:50 Completed Lactate (Lactic Acid) Stat Lab 07/11/25 15:50 Completed Path Review Blood Smear Stat Lab 07/11/25 15:50 Completed Procalcitonin Stat Lab 07/11/25 15:50 Completed Troponin I Stat Lab 07/11/25 15:50 Completed Troponin I Stat Lab 07/11/25 17:47 Ordered Urinalysis Stat Lab 07/11/25 16:00 Completed Urine Culture Stat Lab 07/11/25 16:00 Received Acetaminophen Tab [Tylenol ES Tab] Med 07/11/25 15:03 Discontinued 1,000 mg PO X1 ONE Cefepime Inj [Maxipime Inj] 2 gm Med 07/11/25 16:21 Discontinued SODIUM CHLORIDE 0.9% (Popper) [Ns 0.9% (P)] 50 ml IV X1 Morphine* Inj Med 07/11/25 16:15 Discontinued 4 mg IVP X1 ONE Ringers Lactated 1000 ml [Lactated Ringers] 1,503 ml Med 07/11/25 16:16 Discontinued IV 1,503 mls/hr Vancomycin Inj 1,500 mg Med 07/11/25 17:15 Active Sodium Chloride 0.9% 500 ml [Ns] 500 ml IV X1 Vancomycin Pharmacy to Dose Med 07/11/25 16:30 Active 1 each IV QDAY metroNIDAZOLE/NS 500 MG IVPB [Flagyl 500 mg IV] Med 07/11/25 16:21 Discontinued 500 mg in 100 ml IV X1 Vital Signs Vital signs: Vital Signs Temperature 102.4 F H 07/11/25 14:56 Pulse Rate 118 H 07/11/25 14:56 Respiratory Rate 20 07/11/25 14:56 Blood Pressure 114/68 07/11/25 14:56 Pulse Oximetry (%) 97 07/11/25 14:56 Oxygen Delivery Method Room Air 07/11/25 14:56 Discharge Plan Plan Patient Disposition: Admit Acute Care w/in Hospital Prescriptions/Referrals Prescriptions/Med Rec: No Action ibuprofen 800 mg tablet 800 mg PO TID PRN (Reason: pain) Qty: 30 0RF hydrocodone-acetaminophen 5-325 mg tablet 1 tab PO BID MDD 10 PRN (Reason: pain) Qty: 10 0RF Referrals: Chinedu Finley PA-C [Primary Care Provider] - In 1 week Problem List Clinical Impression: Neutropenia with fever Patient/Caregiver Discharge Instructions Print Language: Telugu Stand Alone Forms: [employer] Award Info., Patient Portal Info Letter MDM Narrative MDM hospital course (for use when minimal MDM required): HPI: 50-year-old female with past medical history of stage III invasive ductal carcinoma of the left breast with metastasis to the left axillary lymph node, history of cervical cancer, depression, asthma presenting to the ER on 07/11 with worsening fever and chest discomfort. Patient states has been having fever for the past week or so but recently started to have generalized pain but more specifically in her chest. Patient recently started chemotherapy with her oncologist Dr. Forde for the breast cancer she has a right sided Port-A-Cath which was inserted on 06/27/2025. She states the pain feels like a crushing sensation in the middle of her chest with radiation to her back. She also complains of generalized bodyaches. She started chemotherapy last week and has 16 sessions every other week. Of note, apparently her surgeon states that she only has stage I breast cancer; however, her oncologist told her that she has stage III. This has caused some distress between her and her family at this time. On examination, please refer to the physical exam above; patient presented to the ER normotensive 114/68 with tachycardia heart rate of 118, respiratory rate of 20, febrile with a Tmax of 102.4 ?F, saturating 97 on room air. Pertinent lab findings include leukopenia with a WBC of 0.4, neutropenic fever with an ANC of 200, normocytic anemia hemoglobin 11.2, no cytopenia with a platelet count of 39 with no overt signs of bleeding. CMP does show hyponatremia, lactic acidosis of 1.5, LFTs elevated T. bili Mir 0.7, AST 69, ALT 143, alk phos 134, Pro-Manny 0.15 Chest x-ray shows no pneumonia or pulmonary edema EKG shows sinus tachycardia without any concerning ST changes noted #Neutropenic fever As noted above based on history of recent chemotherapy patient presenting with fever, ANC around 200 and leukopenia 0.4 Started patient on broad-spectrum antibiotics including cefepime, vancomycin and Flagyl Chest x-ray does not show any source of infection Urinalysis shows 5 RBC and +1 bacteria but negative LE/N trop (-) <0.002 Plan: Will call hospitalist team to assess patient for admission Patient seen and assessed with attending Dr. AJ Fernandez, DO PGY-2 Internal Medicine - GME Medication Administration(s) Medication Administration History Vancomycin HCl 1,500 mg/ (Sodium Chloride) 500 mls @ 150 mls/hr IV X1 ONE Stop: 07/11/25 20:34 Last Admin: 07/11/25 17:55 Dose: 150 mls/hr Documented By: TONY Pharmacy Consult (Vancomycin Pharmacy To Dose 1 Each Each) 1 each IV QDAY JESSE Stop: 08/10/25 16:29 Last Admin: 07/11/25 17:55 Dose: Not Given Documented By: TONY Non-Admin Reason: See IV Spreadsheet Discontinued Medications Acetaminophen (Acetaminophen 500 Mg Tablet) 1,000 mg PO X1 ONE Stop: 07/11/25 15:04 Last Admin: 07/11/25 15:55 Dose: 1,000 mg Documented By: FABIENNE Lactated Ringer's (Lactated Ringers) 1,503 mls @ 1,503 mls/hr 30 ml/kg infuse over 60 min (1503 ml) IV .Q1H ONE Stop: 07/11/25 17:15 Last Admin: 07/11/25 17:54 Dose: 1,503 mls/hr Documented By: FC Cefepime HCl 2 gm/ Sodium (Chloride) 50 mls @ 100 mls/hr IV X1 ONE Stop: 07/11/25 16:50 Last Admin: 07/11/25 17:50 Dose: Not Given Documented By: TONY Non-Admin Reason: Cancelled by Provider Metronidazole (Flagyl 500 Mg Iv) 500 mg in 100 mls @ 100 mls/hr IV X1 ONE Stop: 07/11/25 17:20 Last Admin: 07/11/25 16:50 Dose: 100 mls/hr Documented By: TONY Morphine Sulfate (Morphine Sulf Inj 4 Mg/Ml Vial) 4 mg IVP X1 ONE Stop: 07/11/25 16:16 Last Admin: 07/11/25 16:45 Dose: 4 mg Documented By: TONY
[2025-07-11] MEDS: ACETAMINOPHEN 500 MG TABLET 1000 MG PO (15:55)
[2025-07-11 16:09] LABS: Lactate (Lactic Acid) 1.5 mMol/L (0.4-2.0)
[2025-07-11 16:11] LABS: Basophils # (Auto) 0.0 Thou/mm3 (0.0-0.2); Basophils % (Auto) 3 % (0-2.5); Eosinophils # (Auto) 0.0 Thou/mm3 (0.0-0.5); Eosinophils % (Auto) 8 % (0-10); Hematocrit 31.5 % (36.0-46.0); Hemoglobin 11.2 g/dL (12.0-16.0); Immature Granulocytes Auto 0.00 Thou/mm3 (0.00-0.00); Lymphocytes # (Auto) 0.3 Thou/mm3 (1.0-4.8); Lymphocytes % (Auto) 63 % (10-50); Mean Corpuscular HGB Conc 35.6 g/dl (31.0-37.0); Mean Corpuscular Hemoglobin 31.4 pg (25.0-35.0); Mean Corpuscular Volume 88 fL (80-100); Monocytes # (Auto) 0.0 Thou/mm3 (0.0-0.8); Monocytes % (Auto) 8 % (0-12); Neutrophils # (Auto) 0.1 Thou/mm3 (1.8-7.7); Neutrophils % (Auto) 20 % (37-80); Nucleated Red Blood Cell # 0.00 Thou/mm3 (0.00-0.00); Nucleated Red Blood Cell % 0 /100 WBC (0); RDW Standard Deviation 37.2 fL (36.4-46.3); Red Blood Count 3.57 Miln/mm3 (4.00-5.20)
[2025-07-11 16:18] LABS: Platelet Count 39 Thou/mm3 (140-440); White Blood Count 0.4 Thou/mm3 (3.6-11.0)
[2025-07-11 16:42] LABS: Alanine Aminotransferase 143 U/L (10-49); Albumin, Serum 4.1 gm/dL (3.5-5.0); Albumin/Globulin Ratio 1.4 (1.2-2.2); Alkaline Phosphatase 134 U/L (46-116); Anion Gap 10 (7-16); Aspartate Amino Transferase 69 U/L (0-34); BUN/Creatinine Ratio 17 Ratio (12-20); Bilirubin,Total 0.7 mg/dL (0.3-1.2); Blood Urea Nitrogen 10 mg/dL (9-23); Calcium 8.5 mg/dL (8.3-10.6); Calcium (Corrected) 8.5 mg/dL (8.5-10.1); Carbon Dioxide 24.3 mMol/L (20.0-31.0); Chloride 99 mMol/L (98-107); Creatinine (Component) 0.6 mg/dL (0.6-1.3); Estimated Creatinine Clearance 104.1 mL/min (>60); Globulin 3.0 gm/dL (2.3-3.5); Glucose 156 mg/dL (74-106); Osmolality,Calculated 268 (275-295); Potassium 3.9 mMol/L (3.4-5.1); Procalcitonin 0.15 ng/ml (0.0-0.49); Sodium 133 mMol/L (136-145); Total Protein 7.1 gm/dL (5.7-8.2); eGFR > 60 See Note
[2025-07-11] MEDS: MORPHINE SULF INJ 4 MG/ML VIAL IVP (16:45)
[2025-07-11 16:48] LABS: Collection Type, Urine Clean Catch
[2025-07-11] MEDS: metroNIDAZOLE/NS 500 MG IVPB 500 MG/100 ML BAG 100 MG IV (16:50)
[2025-07-11 16:56] LABS: Bacteria,Urine 1+; Bilirubin,Urine Negative (Negative); Blood,Urine Negative (Negative); Clarity,Urine Clear (Clear/Hazy); Color,Urine Yellow (Lt Yel-Yel); Glucose, Urine Negative (Negative); Ketones,Urine Negative (Negative); Leukocyte Esterase,Urine Negative (Negative); Nitrite,Urine Negative (Negative); PH,Urine 6.0 (5.0-7.0); Protein,Urine Trace (Neg - Trace); RBC,Urine 5 /hpf (0-3); Specific Gravity,Urine 1.023 (1.001-1.035); Squamous Epithelial Cell,Urine 5 /hpf (0-5); Urobilinogen,Urine Negative mg/dL (0.0-1.0); WBC,Urine 4 /hpf (0-5)
[2025-07-11 17:03] LABS: Path Review Blood Smear Sent to Pathologist; Slide Review Platelets confirmed
[2025-07-11 17:19] LABS: Troponin I < 0.020 ng/mL (0.0-0.045)
[2025-07-11] MEDS: Vancomycin Inj 1,500 MG in SODIUM CHLORIDE 0.9% 500 ML 500 ML 150 MG IV (17:55)
--- NOTE | 2025-07-11 17:59 | ESHP_ITS ---
<Statement entered by Hugh Paulino MD - 07/11/25 19:11> I saw and examined patient personally and supervised PGY 1 resident, Dr. Vargas with formulating a management plan. I agree with the documentation with the exceptions as listed below. Patient has stage III breast cancer and started chemotherapy on 07/04 via Chemo- Port. For the past week she has had progressively worsening chest pain, fevers, weakness and cough. On presentation her labs showed severe neutropenia of 100, Hb 11.2, platelet 39, Trope I <0.02, chest x-ray showed no signs of pneumonia or pulmonary edema. Patient was started on ciprofloxacin and clindamycin for neutropenic fever. Blood and urine cultures pending. Will attempt to reach out to her heme oncologist, Dr. Forde tomorrow for additional history. Plan of care discussed with Attending Dr. Neha Paulino MD PGY 2 Disclaimer: This note was dictated by speech recognition. Minor errors in ad writer may be present due to voice recognition software. Documentation for date of: 07/11/25 HPI History of Present Illness Chief complaint: Fever, chest pain, weakness History of present illness: History of present illness: Patient is a 50 yo F with PMH of stage 3 breast cancer, cervical cancer, depression, asthma presented to ED for new-onset fever, weakness, malaise, and chest pain for about 1 week. After receiving her first course of chemotherapy, patient began having fever and weakness, which has progressively gotten worse. She has significant cough, aching chest pain, and aching all over her body. Denies all other symptoms. Per partner, he got sick with URI around same time. ED course: BP 114/68, HR 118 (tachy), RR 20, Tmax 102.4 ?F, O2 97% on room air. Workup shows leukopenia with a WBC of 0.4, neutrophils 0.1 Hgb 11.2, Platelets of 39 (no bleeding). CMP shows lactate 1.5, LFTs elevated T. bili 0.7, AST 69, ALT 143, alk phos 134, Pro-Manny 0.15. CXR no pneumonia or pulmonary edema, EKG- sinus tachycardia with no ST changes. Hospitalist team called for admission. PMH: breast cancer, cervical cancer, depression, PTSD, asthma PSH: hysterectomy, cholecystectomy, C-sections, spinal fusion Allergies: Penicillin (fever & rash), cephalexin (anaphylaxis) Social history: Denies use tobacco, alcohol, or drugs Review of Systems Review of Systems Narrative Review of Systems: General: Endorses fevers HEENT: Denies congestion or sore throat Heart: Endorses chest pain Lungs: Endorses significant cough Abdomen: Denies diarrhea, nausea or vomiting, constipation, BRBPR, melena Genitourinary: Denies frequency, urgency, dysuria, hematuria Musculoskeletal: Endorses joint and muscular pain Neurology: Denies numbness, tingling ROS otherwise negative except what is mentioned above. Exam Vital Signs Temp Pulse Resp BP Pulse Ox O2 Del Method 99.0 F 89 16 113/70 94 L Room Air 07/11/25 17:56 07/11/25 17:56 07/11/25 17:56 07/11/25 17:56 07/11/25 17:56 07/11/25 17:56 Narrative Exam General: A/O x3, mild distress, well-nourished, well-developed, malaise Eyes: PERRL, EOMI. Anicteric, vision grossly intact. Ears: No ear pain, no ear discharge, Hearing grossly intact. Nose: No nasal discharge. Mouth/Throat: Moist mucous membranes, no redness, no lesions. Neck: Neck supple, non-tender, no cervical lymphadenopathy. Lungs: Clear PAULA to auscultation and percussion, No accessory muscle use. Cardio: Normal S1/S2, regular rhythm, no murmurs, no JVD or carotid bruits, chest is tender to palpation Abdomen: Soft, tender to palpation, no palpable masses, peristalsis present, no guarding or rebound. Extremities: Symmetrical, no significant deformities, no peripheral edema , tender, peripheral pulses present. Skin: Somewhat feverish to touch; skin warm and red Neuro: No focal neurological deficits; tenderness all over body Psych: Cooperative, appropriate mood and effect. Results: Labs 07/11/25 15:50 07/11/25 15:50 Labs: Short CBC 07/11/25 Range/Units 15:50 WBC 0.4 L* (3.6-11.0) Thou/mm3 Hgb 11.2 L (12.0-16.0) g/dL Hct 31.5 L (36.0-46.0) % Plt Count 39 L D (140-440) Thou/mm3 BMP 07/11/25 15:50 Sodium 133 L Potassium 3.9 Chloride 99 Carbon Dioxide 24.3 BUN 10 Creatinine 0.6 Glucose 156 H Calcium 8.5 Cardiac Enzymes 07/11/25 Range/Units 15:50 Troponin I < 0.020 (0.0-0.045) ng/mL Liver Function 07/11/25 Range/Units 15:50 Total Bilirubin 0.7 (0.3-1.2) mg/dL AST 69 H (0-34) U/L ALT 143 H (10-49) U/L Alkaline Phosphatase 134 H (46-116) U/L Albumin 4.1 (3.5-5.0) gm/dL Urine 07/11/25 Range/Units 16:00 Urine Color Yellow (Lt Yel-Yel) Urine Clarity Clear (Clear/Hazy) Urine pH 6.0 (5.0-7.0) Ur Specific [place] 1.023 (1.001-1.035) Urine Protein Trace (Neg - Trace) Urine Glucose (UA) Negative (Negative) Quality Measures Quality Measures none Medications Home Medications and Allergies Allergies Allergy/AdvReac Type Severity Reaction Status Date / Time cephalexin (From Keflex) Allergy Verified 07/11/25 14:45 Penicillins Allergy Verified 07/11/25 14:45 Visit Medications Vancomycin HCl 1,500 mg/ (Sodium Chloride) 500 mls @ 150 mls/hr IV X1 ONE Stop: 07/11/25 20:34 Last Admin: 07/11/25 17:55 Dose: 150 mls/hr Pharmacy Consult (Vancomycin Pharmacy To Dose 1 Each Each) 1 each IV QDAY JESSE Stop: 08/10/25 16:29 Last Admin: 07/11/25 17:55 Dose: Not Given Discontinued Medications Acetaminophen (Acetaminophen 500 Mg Tablet) 1,000 mg PO X1 ONE Stop: 07/11/25 15:04 Last Admin: 07/11/25 15:55 Dose: 1,000 mg Lactated Ringer's (Lactated Ringers) 1,503 mls @ 1,503 mls/hr 30 ml/kg infuse over 60 min (1503 ml) IV .Q1H ONE Stop: 07/11/25 17:15 Last Admin: 07/11/25 17:54 Dose: 1,503 mls/hr Cefepime HCl 2 gm/ Sodium (Chloride) 50 mls @ 100 mls/hr IV X1 ONE Stop: 07/11/25 16:50 Last Admin: 07/11/25 17:50 Dose: Not Given Metronidazole (Flagyl 500 Mg Iv) 500 mg in 100 mls @ 100 mls/hr IV X1 ONE Stop: 07/11/25 17:20 Last Admin: 07/11/25 16:50 Dose: 100 mls/hr Morphine Sulfate (Morphine Sulf Inj 4 Mg/Ml Vial) 4 mg IVP X1 ONE Stop: 07/11/25 16:16 Last Admin: 07/11/25 16:45 Dose: 4 mg Assessment & Plan Plan Patient is a 50 yo F with PMH of stage 3 breast cancer, cervical cancer, depression, asthma presented to ED for new-onset fever, weakness, malaise, and chest pain for 3-4 days. Patient admitted for neutropenic fever. #Neutropenic fever secondary to #Recent chemotherapy administration for stage 3 breast cancer and #Potential URI #Thrombocytopenia Patient has history of stage 3 breast cancer and had chemotherapy administered shortly before symptom onset; partner also had URI-like symptoms. Patient follows with Dr. Hoyos, Last chemotherapy session approximately 1 week ago Admission vitals: HR 118 (tachy), RR 20, Tmax 102.4 ?F Admission labs: leukopenia with a WBC 0.4, neutrophils 0.1, Platelets 39 MASCC score- moderate symptom severity, solid tumor, required fluids, score 21 Plan: Reverse precautions 1L LR overnight for maintenance Ciprofloxacin 400 q12h and clindamycin 600 q8hFor neutropenic fever, patient has allergies, namely anaphylaxis to first generation cephalosporins and reported rash and fever with penicillins. We could try cefepime which would be the better choice, minimal cross-reactivity between 1st and 4th generation cephalosporins however we will err on the side of caution. If the patient worsens we can also try a carbapenem #Acute liver injury, Likely secondary to chemotherapy agent elevated T. bili 0.7, AST 69, ALT 143, alk phos 134; likely due to recent chemotherapy With presumed Taxol per oncology documentation Plan: Trend labs Disposition: Tele DVT prophylaxis: SCD GI prophylaxis: Diet: Regular Lines: PIV, chemo-port CODE STATUS: Full This case was discussed with my attending physician, Dr. Solomon, and senior resident, Dr. Paulino. Kahlil Vargas, PGY1 Attending Provider Attestation/Addendum I or my resident physicians have discussed care with the ED physician and I have made the decision to admit. I have discussed and was present for the essential components of the history, physical examination, diagnosis, and treatment plan with the resident. I agree with the patient's care as documented by the resident and amended herein by me. Anshu Solomon DO. Although this document has been carefully reviewed, there may still be some phonetic and other typographical errors. These errors are purely grammatical due to imperfections in the software program and should not be construed in any way to compromise the substance of the patient's medical care during this visit.
[2025-07-11 18:51] LABS: Troponin I < 0.002 ng/mL (0.0-0.045)
[2025-07-11] MEDS: RINGERS LACTATED 1000 ML 1,000 ML 125 ML IV (19:47)
[2025-07-11] MEDS: CIPROFLOXACIN/D5w 400 MG IVPB 400 MG/200 ML BAG 200 MG IV (21:32)
[2025-07-11] MEDS: ONDANSETRON INJ 2 MG/ML INJ 2 ML 4 MG IVP (23:30)
[2025-07-12] VITALS (11 sets, daily range): BP systolic 95–111; BP diastolic 58–70; PULSE 77–102; RESP 15–25; TEMP 36.4–38.6; O2SAT 93–99; BMI 33.8
[2025-07-12] MEDS: PROMETHAZINE/DM SYRUP 5 ML DOSE PO (00:33)
[2025-07-12] MEDS: ACETAMINOPHEN 325 MG TABLET 650 MG PO ×3 (02:50→12:20)
[2025-07-12 05:43] LABS: Basophils # (Auto) 0.0 Thou/mm3 (0.0-0.2); Basophils % (Auto) 2 % (0-2.5); Eosinophils # (Auto) 0.1 Thou/mm3 (0.0-0.5); Eosinophils % (Auto) 11 % (0-10); Hematocrit 28.8 % (36.0-46.0); Hemoglobin 10.2 g/dL (12.0-16.0); Immature Granulocytes Auto 0.01 Thou/mm3 (0.00-0.00); Lymphocytes # (Auto) 0.3 Thou/mm3 (1.0-4.8); Lymphocytes % (Auto) 55 % (10-50); Mean Corpuscular HGB Conc 35.4 g/dl (31.0-37.0); Mean Corpuscular Hemoglobin 31.9 pg (25.0-35.0); Mean Corpuscular Volume 90 fL (80-100); Monocytes # (Auto) 0.0 Thou/mm3 (0.0-0.8); Monocytes % (Auto) 7 % (0-12); Neutrophils # (Auto) 0.2 Thou/mm3 (1.8-7.7); Neutrophils % (Auto) 24 % (37-80); Nucleated Red Blood Cell # 0.00 Thou/mm3 (0.00-0.00); Nucleated Red Blood Cell % 0 /100 WBC (0); RDW Standard Deviation 37.3 fL (36.4-46.3); Red Blood Count 3.20 Miln/mm3 (4.00-5.20)
[2025-07-12 05:45] LABS: Platelet Count 40 Thou/mm3 (140-440); White Blood Count 0.6 Thou/mm3 (3.6-11.0)
[2025-07-12 05:47] LABS: Slide Review Platelets confirmed
[2025-07-12 06:00] LABS: INR 1.0 (0.9-1.3); Partial Thromboplastin Time 27.4 Seconds (22.0-36.0); Prothrombin Time 10.9 Seconds (9.0-12.2)
[2025-07-12 06:01] LABS: Glucose Estimated Average 111 mg/dL (80-131); Hemoglobin A1C 5.5 % Hgb (4.8-6.0)
[2025-07-12 06:17] LABS: Alanine Aminotransferase 121 U/L (10-49); Albumin, Serum 3.7 gm/dL (3.5-5.0); Albumin/Globulin Ratio 1.4 (1.2-2.2); Alkaline Phosphatase 119 U/L (46-116); Anion Gap 9 (7-16); Aspartate Amino Transferase 54 U/L (0-34); BUN/Creatinine Ratio 13 Ratio (12-20); Bilirubin,Total 0.5 mg/dL (0.3-1.2); Blood Urea Nitrogen 8 mg/dL (9-23); Calcium 8.5 mg/dL (8.3-10.6); Calcium (Corrected) 8.7 mg/dL (8.5-10.1); Carbon Dioxide 27.8 mMol/L (20.0-31.0); Cardiac Risk Estimate 2.1 RATIO (3.7-5.6); Chloride 101 mMol/L (98-107); Cholesterol 106 mg/dL (132-200); Creatinine (Component) 0.6 mg/dL (0.6-1.3); Estimated Creatinine Clearance 111.4 mL/min (>60); Globulin 2.6 gm/dL (2.3-3.5); Glucose 116 mg/dL (74-106); HDL Cholesterol 50 mg/dL (40-60); LDL Cholesterol,Calculated 45 mg/dL (0-130); Magnesium 1.7 mg/dL (1.6-2.6); Osmolality,Calculated 274 (275-295); Phosphorous 3.1 mg/dL (2.4-5.1); Potassium 4.2 mMol/L (3.4-5.1); Sodium 138 mMol/L (136-145); Total Protein 6.3 gm/dL (5.7-8.2); Triglycerides 54 mg/dL (30-150); eGFR > 60 See Note
[2025-07-12] MEDS: CLINDAMYCIN 150 MG CAPSULE 600 MG PO ×2 (06:20→15:45)
[2025-07-12] MEDS: CIPROFLOXACIN/D5w 400 MG IVPB 400 MG/200 ML BAG 200 MG IV ×2 (08:22→21:17)
[2025-07-12 08:43] LABS: Clostridium Difficile PCR Negative (Negative)
[2025-07-12] MEDS: BENZONATATE 100 MG CAPSULE PO ×2 (09:49→21:16)
[2025-07-12] MEDS: ALBUTEROL/IPRATROPIUM (Duoneb) RT SOL 3 ML NEBU INH (11:15)
[2025-07-12] MEDS: guaiFENesin SYRUP 200 MG/10 ML UDC PO ×2 (12:20→18:21)
--- NOTE | 2025-07-12 12:39 | ESPR_ITS ---
<Statement entered by Hugh Paulino MD - 07/12/25 14:01> I saw and examined patient personally and supervised PGY 1 resident, Dr. Craig with formulating a management plan. I agree with the documentation with the exceptions as listed below. Patient was admitted for neutropenic fever. Overnight she again was febrile with a temperature of 100.8. Currently ANC improved to 147 from 100 on admission. Blood and urine cultures also pending. Patient is on ciprofloxacin and clindamycin for neutropenic fever. Reached out to her oncologist, Dr. Forde for recommendations, pending a response. Also patient endorses watery diarrhea for the past few days. C. difficile, stool for WBCs, ova/parasites and calprotectin were ordered. Plan of care discussed with Attending Dr. Murtaza Paulino MD PGY 2 Disclaimer: This note was dictated by speech recognition. Minor errors in manager may be present due to voice recognition software. Documentation for date of: 07/12/25 Subjective Subjective Interval history: Overnight, patient had fever of 100.8, resolved with Tylenol, and patient continued to have multiple episodes of diarrhea and C. difficile ordered. Patient seen examined at bedside. VSS, temp of 99.9, saturate 90% room air. Significant labs include WBC uptrending 0.6, ANC 156 today, LFTs downtrending. Will attempt to contact Dr. Forde regarding chemotherapy regimen. Continue clindamycin and ciprofloxacin. Pending cocci. Stool studies ordered as well as C. difficile for diarrhea. Exam Vital Signs Temp Pulse Resp BP Pulse Ox O2 Del Method 101.5 F H 88 20 95/65 99 Room Air 07/12/25 12:20 07/12/25 11:18 07/12/25 11:18 07/12/25 08:00 07/12/25 11:18 07/12/25 08:00 Narrative Exam GENERAL: AOx3, no acute distress, coughing HEENT: mucous membranes moist, bilateral sclera anicteric CARDIOVASCULAR: regular rhythm, tachycardic, S1/S2 present, no murmurs appreciated, R chest port clean intact PULMONARY: trace wheezes bilaterally ABDOMINAL: soft, non-distended, no rebound/guarding, bowel sounds hyperactive, m ildly tender to deep palpation diffusely EXTREMITIES: no peripheral edema SKIN: warm and dry, intact, no rashes NEURO: CN II-XII grossly intact, no focal deficits, alert, following commands Objective Labs 07/12/25 05:21 07/12/25 05:21 Labs: Laboratory Results - last 24 hr 07/11/25 07/11/25 07/11/25 15:50 16:00 18:07 WBC 0.4 L* RBC 3.57 L Hgb 11.2 L Hct 31.5 L MCV 88 MCH 31.4 MCHC 35.6 RDW Std Deviation 37.2 Plt Count 39 L D Neut % (Auto) 20 L Lymph % (Auto) 63 H [place] % (Auto) 8 Eos % (Auto) 8 Baso % (Auto) 3 H Neut # (Auto) 0.1 L Lymph # (Auto) 0.3 L [place] # (Auto) 0.0 Eos # (Auto) 0.0 Baso # (Auto) 0.0 Immature Gran # (Auto) 0.00 Absolute Nucleated RBC 0.00 Immature Gran % 0 Nucleated RBC % 0 Smear Path Review Sent to Pathologist PT INR APTT Sodium 133 L Potassium 3.9 Chloride 99 Carbon Dioxide 24.3 Anion Gap 10 BUN 10 Creatinine 0.6 Estim Creat Clear Calc 104.1 eGFR > 60 BUN/Creatinine Ratio [address] Glu mg/dL Hemoglobin A1c Calculated Osmolality 268 L Lactic Acid 1.5 Calcium 8.5 Corrected Calcium 8.5 Phosphorus Magnesium Total Bilirubin 0.7 AST 69 H ALT 143 H Alkaline Phosphatase 134 H Troponin I < 0.020 < 0.002 Total Protein 7.1 Albumin 4.1 Globulin 3.0 Albumin/Globulin Ratio 1.4 Triglycerides Cholesterol LDL Cholesterol, Calc HDL Cholesterol Cholesterol/HDL Ratio Procalcitonin 0.15 Ur Collection Type Clean Catch Urine Color Yellow Urine Clarity Clear Urine pH 6.0 Ur Specific [place] 1.023 Urine Protein Trace Urine Glucose (UA) Negative Urine Ketones Negative Urine Blood Negative Urine Nitrite Negative Urine Bilirubin Negative Urine Urobilinogen (Auto) Negative Ur Leukocyte Esterase Negative Urine RBC 5 H Urine WBC 4 Ur Squamous Epith Cells 5 Urine Bacteria 1+ A Stl C. diff Tox B Gene Misc Test Result Platelets confirmed 07/12/25 07/12/25 03:30 05:21 WBC 0.6 L* D RBC 3.20 L Hgb 10.2 L Hct 28.8 L MCV 90 MCH 31.9 MCHC 35.4 RDW Std Deviation 37.3 Plt Count 40 L Neut % (Auto) 24 L Lymph % (Auto) 55 H [place] % (Auto) 7 Eos % (Auto) 11 H Baso % (Auto) 2 Neut # (Auto) 0.2 L Lymph # (Auto) 0.3 L [place] # (Auto) 0.0 Eos # (Auto) 0.1 Baso # (Auto) 0.0 Immature Gran # (Auto) 0.01 H Absolute Nucleated RBC 0.00 Immature Gran % 2 H Nucleated RBC % 0 Smear Path Review PT 10.9 INR 1.0 APTT 27.4 Sodium 138 Potassium 4.2 Chloride 101 Carbon Dioxide 27.8 Anion Gap 9 BUN 8 L Creatinine 0.6 Estim Creat Clear Calc 111.4 eGFR > 60 BUN/Creatinine Ratio [address]ucose [address] Glu mg/dL 111 Hemoglobin A1c 5.5 Calculated Osmolality 274 L Lactic Acid Calcium 8.5 Corrected Calcium 8.7 Phosphorus 3.1 Magnesium 1.7 Total Bilirubin 0.5 AST 54 H ALT 121 H Alkaline Phosphatase 119 H Troponin I Total Protein 6.3 Albumin 3.7 Globulin 2.6 Albumin/Globulin Ratio 1.4 Triglycerides 54 Cholesterol 106 L LDL Cholesterol, Calc 45 HDL Cholesterol 50 Cholesterol/HDL Ratio 2.1 L Procalcitonin Ur Collection Type Urine Color Urine Clarity Urine pH Ur Specific [place] Urine Protein Urine Glucose (UA) Urine Ketones Urine Blood Urine Nitrite Urine Bilirubin Urine Urobilinogen (Auto) Ur Leukocyte Esterase Urine RBC Urine WBC Ur Squamous Epith Cells Urine Bacteria Stl C. diff Tox B Gene Negative Misc Test Result Platelets confirmed Quality Measures Quality Measures none Assessment & Plan Assessment Current Active Medications: Generic Name Dose Route Start Last Admin Trade Name Rosana PRN Reason Stop Dose Admin Acetaminophen 650 mg 07/11/25 18:08 07/12/25 12:20 Acetaminophen 325 Mg Tablet PO 08/10/25 18:07 650 mg Q6H PRN Administration Fever >100.4 Acetaminophen 650 mg 07/11/25 18:08 Acetaminophen 325 Mg Tablet PO 08/10/25 18:07 Q6H PRN PAIN SCALE 1-3 (mild Albuterol/Ipratropium 3 ml 07/12/25 10:04 07/12/25 11:15 Albuterol/Ipratropium (Duoneb) Rt Sharon 3 Ml Nebu INH 08/11/25 10:03 3 ml Q2HR PRN Administration SHORTNESS OF BREATH OR WHEEZE Benzonatate 100 mg 07/12/25 09:45 07/12/25 09:49 Benzonatate 100 Mg Capsule PO 08/11/25 09:44 100 mg Q8HR JESSE Administration Protocol Clindamycin HCl 600 mg 07/12/25 07:00 07/12/25 06:20 Clindamycin 150 Mg Capsule PO 07/19/25 06:59 600 mg Q8H JESSE Administration Guaifenesin 200 mg 07/12/25 12:00 07/12/25 12:20 Guaifenesin Syrup 200 Mg/10 Ml Udc PO 08/11/25 11:59 200 mg QID JESSE Administration Protocol Ciprofloxacin/Dextrose 400 mg in 200 mls @ 200 mls/hr 07/11/25 18:00 07/12/25 09:22 Cipro Ivpb IV 07/18/25 17:59 Infused Q12HR JESSE Infusion Ondansetron HCl 4 mg 07/11/25 23:15 07/11/25 23:30 Ondansetron Inj 2 Mg/Ml Inj 2 Ml IVP 08/10/25 23:14 4 mg Q6HR PRN Administration NAUSEA OR VOMITING Protocol Ondansetron HCl 4 mg 07/11/25 23:16 Ondansetron Odt 4 Mg Tabrap PO 08/10/25 23:15 Q6HR PRN NAUSEA OR VOMITING Protocol Plan Shanika Prasad 50F pmhx significant for L invasive ductal breast carcinoma (dx 02/2025, Dr. Forde), hx of cervical cancer 10 y/a, depression/anxiety and asthma presented to [facility] ED 07/11 for one week of extreme weakness, fatigue, malaise, cough, chest pain and diarrhea following chemotherapy, admitted for neutropenic fever. #Neutropenic fever #Cough #L invasive ductal breast carcinoma (dx 02/2025) on chemo Ddx: URI, diarrhea, fever of unknown origin Presented with one week of extreme weakness, fatigue, malaise and cough, latter causing chest pain, and three days of diarrhea following first session of chemotherapy. Sick contact (partner) at home. In ED, WBC 0.4 and ANC calculated to be 80, T max 102. CXR neg. UA clean. Flu, RSV and COVID negative. 07/12 ANC 156. MASCC score: 21 Plan: - Ciprofloxacin 400 mg q12h and clindamycin 600 q8h (07/12- , as patient allergies cephalexin (anaphylaxis) and penicillin (hives), latter on board for MRSA coverage as patient has a chemo port - leon Galindo - If ANC remains low despite antibiotics, will consider filgrastin - Reverse precautions - F/u cocci #Diarrhea Ddx: 2/2 chemo, opportunistic infections, C diff Reports initial constipation following chemo however 3 days ago, diarrhea began. States every time she urinates, also has diarrhea, so more than 6 BM a day. Denies recent abx use, only chemo. Plan: - F/u stool studies and C diff - Contact precautions - Avoid loperamide #Asthma Has not required inhaler for a very long time per patient. Trace wheezing appreciated on exam. Plan: - Duonebs q2h prn - Supplemental O2 prn #Thrombocytopenia Ddx: 2/2 chemo, reactive Platelets on admission 39. On 07/03/25 platelets 236. Plan: - CTM platelets #Hepatitis, improving Ddx: chemo, steroids On admission AST/ALT 143/134 ->121/119 Plan: - CTM LFTs Hospital management: Lines: PIV, chemo port (do not use) Diet: regular Bowel: not indicated GI prophylaxis: IV famotidine 20 mg QD DVT prophylaxis: heparin 5000u q8h Disposition: tele, IV abx CODE STATUS: FULL CODE Plan of care discussed with attending Dr. Hauser, and PGY-2 Dr. Paulino. Elina Craig, PGY-1 Internal Medicine Attending Provider Attestation/Addendum I have seen and examined the patient. I was physically present for the reyes portions of the services provided including history, physical exam, diagnosis, treatment plans and orders. I agree with assessment and plan of care as documented by residents. Even though this this note was carefully revised there may still be minor errors in manager due to voice recognition software. Desirae Hauser MD
[2025-07-12 12:50] LABS: Respiratory Syncytial Virus Ag Negative (Negative)
[2025-07-12] MEDS: HEPARIN SOD LOCK SYR 100 UNIT/ML 500 UNIT IV (13:39)
[2025-07-12 14:33] LABS: Cocci Serology, IgM Negative (Negative)
[2025-07-12] MEDS: HEPARIN SOD INJ 5000 UNIT/ML VIAL SC (14:36)
[2025-07-12] MEDS: ACETAMINOPHEN IVPB 1,000 MG/100 ML VIAL 250 MG IV (16:39)
[2025-07-12] MEDS: ONDANSETRON INJ 2 MG/ML INJ 2 ML 4 MG IVP (20:06)
[2025-07-12] MEDS: METOCLOPRAMIDE INJ 5 MG/ML VIAL 2 ML IVP (22:38)
[2025-07-12] MEDS: CLINDAMYCIN/NS 600 MG IVPB 600 MG/50 ML BAG 100 MG IV (23:18)
[2025-07-13] VITALS (12 sets, daily range): BP systolic 93–121; BP diastolic 57–87; PULSE 70–90; RESP 18–22; TEMP 36.2–38.1; O2SAT 91–100; BMI 30.2
[2025-07-13] MEDS: CLINDAMYCIN/NS 600 MG IVPB 600 MG/50 ML BAG 100 MG IV (05:19)
[2025-07-13] MEDS: guaiFENesin SYRUP 200 MG/10 ML UDC PO ×2 (05:27→21:42)
[2025-07-13 06:16] LABS: Basophils # (Auto) 0.0 Thou/mm3 (0.0-0.2); Basophils % (Auto) 1 % (0-2.5); Eosinophils # (Auto) 0.0 Thou/mm3 (0.0-0.5); Eosinophils % (Auto) 2 % (0-10); Hematocrit 29.7 % (36.0-46.0); Hemoglobin 10.7 g/dL (12.0-16.0); Immature Granulocytes Auto 0.01 Thou/mm3 (0.00-0.00); Lymphocytes # (Auto) 0.5 Thou/mm3 (1.0-4.8); Lymphocytes % (Auto) 36 % (10-50); Mean Corpuscular HGB Conc 36.0 g/dl (31.0-37.0); Mean Corpuscular Hemoglobin 32.1 pg (25.0-35.0); Mean Corpuscular Volume 89 fL (80-100); Monocytes # (Auto) 0.1 Thou/mm3 (0.0-0.8); Monocytes % (Auto) 5 % (0-12); Neutrophils # (Auto) 0.7 Thou/mm3 (1.8-7.7); Neutrophils % (Auto) 55 % (37-80); Nucleated Red Blood Cell # 0.00 Thou/mm3 (0.00-0.00); Nucleated Red Blood Cell % 0 /100 WBC (0); RDW Standard Deviation 37.2 fL (36.4-46.3); Red Blood Count 3.33 Miln/mm3 (4.00-5.20)
[2025-07-13 06:17] LABS: Platelet Count 62 Thou/mm3 (140-440); White Blood Count 1.3 Thou/mm3 (3.6-11.0)
[2025-07-13 06:45] LABS: Alanine Aminotransferase 118 U/L (10-49); Albumin, Serum 4.0 gm/dL (3.5-5.0); Albumin/Globulin Ratio 1.4 (1.2-2.2); Alkaline Phosphatase 143 U/L (46-116); Anion Gap 11 (7-16); Aspartate Amino Transferase 58 U/L (0-34); BUN/Creatinine Ratio 10 Ratio (12-20); Bilirubin,Total 0.3 mg/dL (0.3-1.2); Blood Urea Nitrogen 6 mg/dL (9-23); Calcium 8.6 mg/dL (8.3-10.6); Calcium (Corrected) 8.6 mg/dL (8.5-10.1); Carbon Dioxide 25.7 mMol/L (20.0-31.0); Chloride 99 mMol/L (98-107); Creatinine (Component) 0.6 mg/dL (0.6-1.3); Estimated Creatinine Clearance 105.1 mL/min (>60); Globulin 2.8 gm/dL (2.3-3.5); Glucose 108 mg/dL (74-106); Magnesium 1.8 mg/dL (1.6-2.6); Osmolality,Calculated 270 (275-295); Phosphorous 3.2 mg/dL (2.4-5.1); Potassium 3.6 mMol/L (3.4-5.1); Sodium 136 mMol/L (136-145); Total Protein 6.8 gm/dL (5.7-8.2); eGFR > 60 See Note
[2025-07-13] MEDS: FAMOTIDINE INJ 10 MG/ML VIAL 2 ML 20 MG IVP ×2 (08:36→17:34)
[2025-07-13] MEDS: LACTOBACILLUS RHAMNOSUS 1 CAP PO ×2 (08:36→21:42)
[2025-07-13] MEDS: CIPROFLOXACIN/D5w 400 MG IVPB 400 MG/200 ML BAG 200 MG IV (08:37)
[2025-07-13 08:39] LABS: Slide Review Platelets confirmed
--- NOTE | 2025-07-13 08:46 | PC.SS ---
Follow up note: Waiting 48 hours for final culture results. Pt is on IV antibiotic.
[2025-07-13 09:27] LABS: Stool for WBCs Negative (Negative)
--- NOTE | 2025-07-13 10:34 | ESPR_ITS ---
Subjective Subjective Interval history: changed clinda to iv vanco . if bc neg you can stop the vanco. no idea why clinda used as renal fxn ok. Exam Vital Signs Temp Pulse Resp BP Pulse Ox O2 Del Method 97.2 F 87 22 H 109/65 91 L Room Air 07/13/25 08:00 07/13/25 08:00 07/13/25 08:00 07/13/25 08:00 07/13/25 08:00 07/13/25 08:00 Narrative Exam loquacious. not ill appearing. has different opinions from docs on rx. Objective - Internal Medicine Labs 07/13/25 05:47 07/13/25 05:47 Labs: Laboratory Results - last 24 hr 07/12/25 07/12/25 07/12/25 08:20 10:57 22:50 WBC RBC Hgb Hct MCV MCH MCHC RDW Std Deviation Plt Count Neut % (Auto) Lymph % (Auto) [place] % (Auto) Eos % (Auto) Baso % (Auto) Neut # (Auto) Lymph # (Auto) [place] # (Auto) Eos # (Auto) Baso # (Auto) Immature Gran # (Auto) Absolute Nucleated RBC Immature Gran % Nucleated RBC % Sodium Potassium Chloride Carbon Dioxide Anion Gap BUN Creatinine Estim Creat Clear Calc eGFR BUN/Creatinine Ratio Glucose Calculated Osmolality Calcium Corrected Calcium Phosphorus Magnesium Total Bilirubin AST ALT Alkaline Phosphatase Total Protein Albumin Globulin Albumin/Globulin Ratio Stool for White Cells Negative Coccidioides IgM Ab Negative RSV Rapid Negative Misc Test Result 07/13/25 05:47 WBC 1.3 L* D RBC 3.33 L Hgb 10.7 L Hct 29.7 L MCV 89 MCH 32.1 MCHC 36.0 RDW Std Deviation 37.2 Plt Count 62 L D Neut % (Auto) 55 Lymph % (Auto) 36 [place] % (Auto) 5 Eos % (Auto) 2 Baso % (Auto) 1 Neut # (Auto) 0.7 L Lymph # (Auto) 0.5 L [place] # (Auto) 0.1 Eos # (Auto) 0.0 Baso # (Auto) 0.0 Immature Gran # (Auto) 0.01 H Absolute Nucleated RBC 0.00 Immature Gran % 1 H Nucleated RBC % 0 Sodium 136 Potassium 3.6 D Chloride 99 Carbon Dioxide 25.7 Anion Gap 11 BUN 6 L Creatinine 0.6 Estim Creat Clear Calc 105.1 eGFR > 60 BUN/Creatinine Ratio 10 L Glucose 108 H Calculated Osmolality 270 L Calcium 8.6 Corrected Calcium 8.6 Phosphorus 3.2 Magnesium 1.8 Total Bilirubin 0.3 AST 58 H ALT 118 H Alkaline Phosphatase 143 H D Total Protein 6.8 Albumin 4.0 Globulin 2.8 Albumin/Globulin Ratio 1.4 Stool for White Cells Coccidioides IgM Ab RSV Rapid Misc Test Result Platelets confirmed Assessment & Plan A&P Narrative fever and neutropenia recent chemo for breast CA new port noted. clinda tends to cause loose stools. changed to vanco but pt already here over 24 hr with neg cx. fevers continue though. ua unimpressive if fevers nitin and cx remain neg at 48hr , then you can send out on po levaquin till counts up. low risk neutropenia study published yrs ago. Time Spent With Patient Time: Total time spent is greater than 50% in coordination of care (as documented) at patient's floor/unit and/or counseling patient:
[2025-07-13] MEDS: VANCOMYCIN/WATER 1GM IVPB 200 ML IV ×2 (11:11→21:43)
--- NOTE | 2025-07-13 12:04 | ESPR_ITS ---
<Statement entered by Hugh Paulino MD - 07/13/25 22:10> I saw and examined patient personally and supervised PGY 1 resident, Dr. Craig with formulating a management plan. I agree with the documentation with the exceptions as listed below. Patient presented with neutropenic fever. She had 5 episodes of diarrhea overnight increased from her usual episodes which have been occurring for the past week. Today ANC increased to 742 from 145. Urine and blood culture negative x 24 hours preliminary. C. difficile, cocci, RSV, influenza and COVID all negative. Currently pending stool for WBC and calprotectin. Infectious disease, Dr Godinez was consulted and discontinued clindamycin and started on vancomycin IV. She had recurrent fevers of 100.8?>101.8 throughout the night and today and ciprofloxacin IV was also discontinued and started on meropenem IV. About 2 hours after patient's first dose of meropenem she started to experience flushing, shortness of breath and generalized pruritus. She was treated with epinephrine, Benadryl and methylprednisone after which her condition improved. At this point currently pending 48-hour results of blood culture and improvement of ANC. Plan of care discussed with Attending Dr. Murtaza Paulino MD PGY 2 Disclaimer: This note was dictated by speech recognition. Minor errors in numerologist may be present due to voice recognition software. Documentation for date of: 07/13/25 Subjective Subjective Interval history: No acute overnight events. Patient seen examined at bedside. Patient endorses improved weakness however still persistent. Complains of persistent diarrhea, not improved since admission. VSS. Patient had fever at 1300 of 100.5 and given tylenol. WBC and ANC improving. Attempted to contact Dr. Tuttle and Dr. Graf today regarding cancer staging, as per Dr. Forde's consultation note, staging imaging was ordered as patient does have locally advanced cancer to rule out mets. ID consulted and discontinued clindamycin and started IV vancomycin. Given patient's fever today, broadened ciprofloxacin to meropenem. Chemotherapy regimen found: On 07/04, patient underwent chemotherapy with doxorubicin 106 mg and cyclophosphamide 1062 mg. Pending stool studies and improvement in fevers. Exam Vital Signs Temp Pulse Resp BP Pulse Ox O2 Del Method 97.2 F 87 22 H 109/65 91 L Room Air 07/13/25 08:00 07/13/25 08:00 07/13/25 08:00 07/13/25 08:00 07/13/25 08:00 07/13/25 08:00 Narrative Exam GENERAL: AOx3, no acute distress, coughing HEENT: mucous membranes moist, bilateral sclera anicteric CARDIOVASCULAR: regular rhythm, tachycardic, S1/S2 present, no murmurs appreciated, R chest port clean intact PULMONARY: trace wheezes bilaterally at bases ABDOMINAL: soft, non-distended, no rebound/guarding, bowel sounds hyperactive, non tender EXTREMITIES: no peripheral edema SKIN: warm and dry, intact, no rashes NEURO: CN II-XII grossly intact, no focal deficits, alert, following commands Objective Labs 07/13/25 05:47 07/13/25 05:47 Labs: Laboratory Results - last 24 hr 07/12/25 07/12/25 07/12/25 08:20 10:57 22:50 WBC RBC Hgb Hct MCV MCH MCHC RDW Std Deviation Plt Count Neut % (Auto) Lymph % (Auto) [place] % (Auto) Eos % (Auto) Baso % (Auto) Neut # (Auto) Lymph # (Auto) [place] # (Auto) Eos # (Auto) Baso # (Auto) Immature Gran # (Auto) Absolute Nucleated RBC Immature Gran % Nucleated RBC % Sodium Potassium Chloride Carbon Dioxide Anion Gap BUN Creatinine Estim Creat Clear Calc eGFR BUN/Creatinine Ratio Glucose Calculated Osmolality Calcium Corrected Calcium Phosphorus Magnesium Total Bilirubin AST ALT Alkaline Phosphatase Total Protein Albumin Globulin Albumin/Globulin Ratio Stool for White Cells Negative Coccidioides IgM Ab Negative RSV Rapid Negative Misc Test Result 07/13/25 05:47 WBC 1.3 L* D RBC 3.33 L Hgb 10.7 L Hct 29.7 L MCV 89 MCH 32.1 MCHC 36.0 RDW Std Deviation 37.2 Plt Count 62 L D Neut % (Auto) 55 Lymph % (Auto) 36 [place] % (Auto) 5 Eos % (Auto) 2 Baso % (Auto) 1 Neut # (Auto) 0.7 L Lymph # (Auto) 0.5 L [place] # (Auto) 0.1 Eos # (Auto) 0.0 Baso # (Auto) 0.0 Immature Gran # (Auto) 0.01 H Absolute Nucleated RBC 0.00 Immature Gran % 1 H Nucleated RBC % 0 Sodium 136 Potassium 3.6 D Chloride 99 Carbon Dioxide 25.7 Anion Gap 11 BUN 6 L Creatinine 0.6 Estim Creat Clear Calc 105.1 eGFR > 60 BUN/Creatinine Ratio 10 L Glucose 108 H Calculated Osmolality 270 L Calcium 8.6 Corrected Calcium 8.6 Phosphorus 3.2 Magnesium 1.8 Total Bilirubin 0.3 AST 58 H ALT 118 H Alkaline Phosphatase 143 H D Total Protein 6.8 Albumin 4.0 Globulin 2.8 Albumin/Globulin Ratio 1.4 Stool for White Cells Coccidioides IgM Ab RSV Rapid Misc Test Result Platelets confirmed Quality Measures Quality Measures none Assessment & Plan Assessment Current Active Medications: Generic Name Dose Route Start Last Admin Trade Name Freq PRN Reason Stop Dose Admin Acetaminophen 650 mg 07/11/25 18:08 Acetaminophen 325 Mg Tablet PO 08/10/25 18:07 Q6H PRN PAIN SCALE 1-3 (mild Acetaminophen 1,000 mg 07/12/25 13:59 Acetaminophen 500 Mg Tablet PO 08/10/25 18:07 Q6H PRN Fever >100 Albuterol/Ipratropium 3 ml 07/12/25 10:04 07/12/25 11:15 Albuterol/Ipratropium (Duoneb) Rt Sharon 3 Ml Nebu INH 08/11/25 10:03 3 ml Q2HR PRN Administration SHORTNESS OF BREATH OR WHEEZE Benzonatate 100 mg 07/12/25 09:45 07/13/25 05:27 Benzonatate 100 Mg Capsule PO 08/11/25 09:44 Not Given Q8HR [facility] Protocol Famotidine 20 mg 07/12/25 13:45 07/13/25 08:36 Famotidine Inj 10 Mg/Ml Vial 2 Ml IVP 08/11/25 13:44 20 mg QDAY JESSE Administration Guaifenesin 200 mg 07/12/25 12:00 07/13/25 05:27 Guaifenesin Syrup 200 Mg/10 Ml Udc PO 08/11/25 11:59 200 mg QID JESSE Administration Protocol Heparin Sodium (Porcine) 5,000 unit 07/12/25 14:00 07/13/25 05:28 Heparin Sod Inj 5000 Unit/Ml Vial SC 07/26/25 13:59 Not Given Q8HR JESSE Protocol Ciprofloxacin/Dextrose 400 mg in 200 mls @ 200 mls/hr 07/11/25 18:00 07/13/25 08:37 Cipro Ivpb IV 07/18/25 17:59 200 mls/hr Q12HR JESSE Administration Vancomycin HCl 200 mls @ 120 mls/hr 07/13/25 10:45 07/13/25 11:11 Vancomycin/Water 1gm Ivpb IV 07/20/25 10:44 120 mls/hr BID@1000,2200 JESSE Administration Protocol Lactobacillus Rhamnosus 1 cap 07/13/25 09:00 07/13/25 08:36 Lactobacillus Rhamnosus 1 Cap PO 08/12/25 08:59 1 cap BID JESSE Administration Ondansetron HCl 4 mg 07/11/25 23:15 07/12/25 20:06 Ondansetron Inj 2 Mg/Ml Inj 2 Ml IVP 08/10/25 23:14 4 mg Q6HR PRN Administration NAUSEA OR VOMITING Protocol Ondansetron HCl 4 mg 07/11/25 23:16 Ondansetron Odt 4 Mg Tabrap PO 08/10/25 23:15 Q6HR PRN NAUSEA OR VOMITING Protocol Pharmacy Consult 1 each 07/13/25 10:45 Vancomycin Pharmacy To Dose 1 Each Each IV 08/12/25 10:44 QDAY PRN PROTOCOL Plan Shanika Prasad 50F pmhx significant for L invasive ductal breast carcinoma (dx 02/2025, Dr. Forde), hx of cervical cancer 10 y/a, depression/anxiety and asthma presented to [facility] ED 07/11 for one week of extreme weakness, fatigue, malaise, cough, chest pain and diarrhea following chemotherapy, admitted for neutropenic fever. #Neutropenic fever #Cough #L invasive ductal breast carcinoma (dx 02/2025) on chemo Ddx: URI, diarrhea, fever of unknown origin Presented with one week of extreme weakness, fatigue, malaise and cough, latter causing chest pain, and three days of diarrhea following first session of chemotherapy. Sick contact (partner) at home. In ED, WBC 0.4 and ANC calculated to be 80, T max 102. CXR neg. UA clean. Flu, RSV, cocci and COVID negative. 07/12 ANC 156. 07/13 ANC 728. On 07/04, patient underwent chemotherapy with doxorubicin 106 mg and cyclophosphamide 1062 mg. MASCC score: 21. Ciprofloxacin (07/12-07/13), Clindamycin (07/12-07/13) Plan: - Patient allergies cephalexin (anaphylaxis) and penicillin (hives) - ID consulted: stop clindamycin and started IV vancomycin - Discontinued ciprofloxacin due to recurring fevers and broadened to meropenem 1g q8h (07/13 - dorene Galindoasin - If ANC remains low despite antibiotics, will consider filgrastim - Reverse precautions #Diarrhea Ddx: 2/2 chemo, opportunistic infections, C diff Reports initial constipation following chemo however 3 days ago, diarrhea began. States every time she urinates, also has diarrhea, so more than 6 BM a day. Denies recent abx use, only chemo. C diff negative. Plan: - F/u stool studies - Meropenem as above - Avoid loperamide until stool studies result #Asthma Has not required inhaler for a very long time per patient. Trace wheezing appreciated on exam. Plan: - Duonebs q2h prn - Supplemental O2 prn #Thrombocytopenia, improving Ddx: 2/ chemo, reactive Platelets on admission 39. On 07/03/25 platelets 236. Plan: - CTM platelets #Hepatitis, improving Ddx: chemo, steroids On admission AST/ALT 143/134 ->121/119 Plan: - CTM LFTs Hospital management: Lines: PIV, chemo port (do not use) Diet: regular Bowel: not indicated GI prophylaxis: IV famotidine 20 mg QD DVT prophylaxis: heparin 5000u q8h Disposition: tele, IV abx CODE STATUS: FULL CODE Plan of care discussed with attending Dr. Hauser, and PGY-2 Dr. Paulino. Elina Craig, PGY-1 Internal Medicine Attending Provider Attestation/Addendum I have seen and examined the patient. I was physically present for the reyes portions of the services provided including history, physical exam, diagnosis, treatment plans and orders. I agree with assessment and plan of care as documented by residents. Even though this this note was carefully revised there may still be minor errors in numerologist due to voice recognition software. Desirae Hauser MD
--- NOTE | 2025-07-13 12:33 | PC.SS ---
SS met with patient regarding her d/c plan. Pt is alert/oriented. Pt was admitted for Sepsis With Neutropenic Fever And Chest Pain. Pt confirmed demographic and contact information is correct on facesheet. Pt resides with . Pt ambulates independently using a cane. Pt is ok with all ADLs. Patient?s pharmacy of choice is [facility]. Pt named her , Randall Villagran medical decision maker if she is unable. Patient?s choice is to return home upon d/c. Pt states she is not diabetic and is not on dialysis. Pt states her next follow up appointment is July 23, 2025. will provide transportation. D/C plan: Return home Next of Kin: Randall Villagran, , phone# [phone] PCP: Dr. Chinedu Finley from [facility] on [facility] Address: Correct on facesheet
--- NOTE | 2025-07-13 12:37 | ESCONSULT_ITS ---
RE: EMMA CASTAÑEDA : 1975 DATE OF CONSULTATION: 07/13/25 REFERRING PHYSICIAN: Toñito Solomon DO REASON FOR CONSULTATION: Fever and neutropenia. HISTORY OF PRESENT ILLNESS: The patient is febrile and neutropenic, has been here for about 36 hours. Her blood cultures are negative at 36 hours and will be negative 48 hours this afternoon. She has history of breast cancer and she has seen various providers who have given her different opinions regarding treatment. Dr. Martins recently recommended no treatment, but her local oncologist favored treatment. PAST SURGICAL HISTORY: Includes 4 prior C-sections. She is G4, P4, and prior back surgery couple of years ago and port placement on 06/27, which is nontender, and pelvic surgery for the cervical cancer in the past. She had cervical cancer about 10 years ago. ALLERGIES: PENICILLIN AND KEFLEX. She seems to be tolerating other meds at the moment. IMMUNIZATIONS: Last tetanus was less than a month ago, date uncertain. She does take a flu shot every year and has had no pneumococcal vaccine, has had COVID vaccine 3 times. FAMILY HISTORY: Positive for hypertension and hyperlipidemia, diabetes, and cancer in her mother. Her father also has history of diabetes and colon cancer on his side. SOCIAL HISTORY: She lives independently. Her children are grown, youngest is 27. PHYSICAL EXAMINATION: Benign. Patient is alert, awake. She is not ill appearing. HEENT, heart, lungs, abdomen are benign. She has several prominent tattoos though. RECOMMENDATIONS: I am going to go ahead and check HIV and Hep C tomorrow, but she would probably go home tomorrow if everything is negative, and I will see her again Wednesday if she stays. DT: 12:08:23 TT: 12:36:00 Ref: [id number] - TID: [id number]
[2025-07-13] MEDS: BENZONATATE 100 MG CAPSULE PO ×2 (13:19→21:42)
[2025-07-13] MEDS: HEPARIN SOD INJ 5000 UNIT/ML VIAL SC ×2 (13:19→21:43)
[2025-07-13] MEDS: ACETAMINOPHEN 500 MG TABLET 1000 MG PO (13:19)
[2025-07-13] MEDS: MEROPENEM INJ 1,000 MG in SODIUM CHLORIDE 0.9% (Popper) 50 ML 100 MG IV (15:12)
--- NOTE | 2025-07-13 17:34 | XR_ITS ---
EXAMINATION: AP chest single view TECHNIQUE: AP portable semiupright chest single view Date and time: July 13, 2025, 1743 hours, comparison July 11, 2025 INDICATIONS: Anaphylactic response today FINDINGS: Normal heart size No aspiration pneumonia Mild accentuation basilar bronchovascular markings Right internal jugular Port-A-Cath tip satisfactory position No pulmonary edema The osseous structures are demineralized IMPRESSION: Negative for aspiration pneumonia
[2025-07-13] MEDS: MethylPREDNISolone SOD SUCC 62.5 MG/ML 2ML VIAL 125 MG IVP (17:37)
[2025-07-13] MEDS: EPINEPHrine RT SOL 0.5 ML NEBU INH (17:40)
[2025-07-13] MEDS: SODIUM CHLORIDE RT SOL 0.9% 3 ML NEBU INH (17:40)
--- NOTE | 2025-07-13 17:53 | PD.RESEVENT ---
Documentation for date of: 07/13/25 Event Note Event Note: Rapid Response Room: 272 Time: 1536 Reason for Call: anaphylaxis Patient presentation: Patient endorsed throat closing up, difficulty breathing, eye swelling, facial flushing and further weakness. Denies food allergens as dinner tray was at bedside. Events: Patient SBP 119, HR stable, saturating 99% room air. Benadryl 50 mg x 1, methylprednisolone 125 mg x 1, famotidine 20 mg x 1 and racemic epinephrine breathing treatment given with mild improvement. Nurse reports that when meropenem was given at 1530, and at the time patient endorsed slight diaphoresis, no difficulty breathing. However since, patient did not experience new symptoms until physician was called at 1535 for above presentation. Assessment: Last medication given meropenem at about 1530 2 hrs. prior to rapid called. Given patient's extensive antibiotic allergies, will list meropenem as new allergy. New orders: Benadryl 50 mg x 1, methylprednisolone 125 mg x 1, famotidine 20 mg x 1 and racemic epinephrine breathing treatment, CBC, CMP, CXR, lactic acid Patient was discussed with the attending, Dr. Hauser. Elina Craig, DO Internal Medicine PGY-1
[2025-07-13 18:30] LABS: Lactate (Lactic Acid) 1.8 mMol/L (0.4-2.0)
[2025-07-13 18:58] LABS: Basophils # (Auto) 0.0 Thou/mm3 (0.0-0.2); Basophils % (Auto) 0 % (0-2.5); Eosinophils # (Auto) 0.0 Thou/mm3 (0.0-0.5); Eosinophils % (Auto) 1 % (0-10); Hematocrit 29.2 % (36.0-46.0); Hemoglobin 10.1 g/dL (12.0-16.0); Immature Granulocytes Auto 0.01 Thou/mm3 (0.00-0.00); Lymphocytes # (Auto) 1.3 Thou/mm3 (1.0-4.8); Lymphocytes % (Auto) 52 % (10-50); Mean Corpuscular HGB Conc 34.6 g/dl (31.0-37.0); Mean Corpuscular Hemoglobin 31.1 pg (25.0-35.0); Mean Corpuscular Volume 90 fL (80-100); Monocytes # (Auto) 0.1 Thou/mm3 (0.0-0.8); Monocytes % (Auto) 4 % (0-12); Neutrophils # (Auto) 1.1 Thou/mm3 (1.8-7.7); Neutrophils % (Auto) 43 % (37-80); Nucleated Red Blood Cell # 0.00 Thou/mm3 (0.00-0.00); Nucleated Red Blood Cell % 0 /100 WBC (0); RDW Standard Deviation 38.0 fL (36.4-46.3); Red Blood Count 3.25 Miln/mm3 (4.00-5.20); White Blood Count 2.5 Thou/mm3 (3.6-11.0)
[2025-07-13 18:59] LABS: Platelet Count 76 Thou/mm3 (140-440); Slide Review Platelets confirmed
[2025-07-13 19:07] LABS: Alanine Aminotransferase 97 U/L (10-49); Albumin, Serum 3.9 gm/dL (3.5-5.0); Albumin/Globulin Ratio 1.4 (1.2-2.2); Alkaline Phosphatase 133 U/L (46-116); Anion Gap 11 (7-16); Aspartate Amino Transferase 41 U/L (0-34); BUN/Creatinine Ratio 10 Ratio (12-20); Bilirubin,Total 0.3 mg/dL (0.3-1.2); Blood Urea Nitrogen 6 mg/dL (9-23); Calcium 8.2 mg/dL (8.3-10.6); Calcium (Corrected) 8.3 mg/dL (8.5-10.1); Carbon Dioxide 24.1 mMol/L (20.0-31.0); Chloride 104 mMol/L (98-107); Creatinine (Component) 0.6 mg/dL (0.6-1.3); Estimated Creatinine Clearance 105.1 mL/min (>60); Globulin 2.8 gm/dL (2.3-3.5); Glucose 177 mg/dL (74-106); Osmolality,Calculated 279 (275-295); Potassium 2.9 mMol/L (3.4-5.1); Sodium 139 mMol/L (136-145); Total Protein 6.7 gm/dL (5.7-8.2); eGFR > 60 See Note
[2025-07-14] VITALS: BP 104/68; PULSE 55; PULSE 61; RESP 26; TEMP 36.6; O2SAT 94
[2025-07-14] MEDS: GABAPENTIN 100 MG CAPSULE 200 MG PO (03:48)
[2025-07-14 04:00] VITALS: BP 101/63; PULSE 70; PULSE 73; RESP 13; TEMP 36.4; O2SAT 97
[2025-07-14] MEDS: HEPARIN SOD INJ 5000 UNIT/ML VIAL SC ×2 (05:29→14:03)
[2025-07-14] MEDS: BENZONATATE 100 MG CAPSULE PO (05:29)
[2025-07-14] MEDS: guaiFENesin SYRUP 200 MG/10 ML UDC PO (05:29)
[2025-07-14 06:30] LABS: Basophils # (Auto) 0.0 Thou/mm3 (0.0-0.2); Basophils % (Auto) 2 % (0-2.5); Eosinophils # (Auto) 0.0 Thou/mm3 (0.0-0.5); Eosinophils % (Auto) 0 % (0-10); Hematocrit 30.3 % (36.0-46.0); Hemoglobin 10.5 g/dL (12.0-16.0); Immature Granulocytes Auto 0.04 Thou/mm3 (0.00-0.00); Lymphocytes # (Auto) 0.3 Thou/mm3 (1.0-4.8); Lymphocytes % (Auto) 11 % (10-50); Mean Corpuscular HGB Conc 34.7 g/dl (31.0-37.0); Mean Corpuscular Hemoglobin 31.3 pg (25.0-35.0); Mean Corpuscular Volume 90 fL (80-100); Monocytes # (Auto) 0.1 Thou/mm3 (0.0-0.8); Monocytes % (Auto) 3 % (0-12); Neutrophils # (Auto) 1.9 Thou/mm3 (1.8-7.7); Neutrophils % (Auto) 83 % (37-80); Nucleated Red Blood Cell # 0.00 Thou/mm3 (0.00-0.00); Nucleated Red Blood Cell % 0 /100 WBC (0); Platelet Count 110 Thou/mm3 (140-440); RDW Standard Deviation 38.5 fL (36.4-46.3); Red Blood Count 3.36 Miln/mm3 (4.00-5.20); White Blood Count 2.3 Thou/mm3 (3.6-11.0)
[2025-07-14 07:28] VITALS: PULSE 69; RESP 20; O2SAT 92
[2025-07-14 08:00] VITALS: BP 102/61; PULSE 66; PULSE 69; RESP 21; TEMP 36.2; O2SAT 93
[2025-07-14 08:35] LABS: Alanine Aminotransferase 93 U/L (10-49); Albumin, Serum 4.1 gm/dL (3.5-5.0); Albumin/Globulin Ratio 1.4 (1.2-2.2); Alkaline Phosphatase 128 U/L (46-116); Anion Gap 11 (7-16); Aspartate Amino Transferase 32 U/L (0-34); BUN/Creatinine Ratio 10 Ratio (12-20); Bilirubin,Total 0.2 mg/dL (0.3-1.2); Blood Urea Nitrogen 5 mg/dL (9-23); Calcium 9.0 mg/dL (8.3-10.6); Calcium (Corrected) 9.0 mg/dL (8.5-10.1); Carbon Dioxide 25.0 mMol/L (20.0-31.0); Chloride 105 mMol/L (98-107); Creatinine (Component) 0.5 mg/dL (0.6-1.3); Estimated Creatinine Clearance 125.9 mL/min (>60); Globulin 3.0 gm/dL (2.3-3.5); Glucose 156 mg/dL (74-106); Magnesium 2.1 mg/dL (1.6-2.6); Osmolality,Calculated 281 (275-295); Phosphorous 3.2 mg/dL (2.4-5.1); Potassium 4.4 mMol/L (3.4-5.1); Sodium 141 mMol/L (136-145); Total Protein 7.1 gm/dL (5.7-8.2); eGFR > 60 See Note
[2025-07-14] MEDS: FAMOTIDINE INJ 10 MG/ML VIAL 2 ML 20 MG IVP (09:06)
[2025-07-14] MEDS: LACTOBACILLUS RHAMNOSUS 1 CAP PO (09:06)
[2025-07-14] MEDS: CIPROFLOXACIN/D5w 400 MG IVPB 400 MG/200 ML BAG 200 MG IV (09:06)
--- NOTE | 2025-07-14 10:20 | XR_ITS ---
Examination: CT chest with intravenous contrast CT abdomen with intravenous contrast CT pelvis with intravenous contrast 2-D coronal and sagittal reconstructions Time of exam: July 14, 2025, 1538 hours INDICATIONS: Left breast carcinoma diagnosis February 2025, staging CTDI: vol (mGy) : 9.96 DLP: (mGycm): 660 Technique: Multiple axial images of the chest, abdomen and pelvis with intravenous contrast, 3.0 mm slice thickness. Images obtained post intravenous injection Isovue 370 60 cc. 2-D sagittal and coronal reconstructions. Low dose protocols were performed. One or more of the following dose reduction techniques were used; automated exposure control, adjustment of the mA and/or KV according to patient size, use of iterative reconstruction technique. Findings: No thoracic aortic aneurysmal dilatation No pulmonary artery filling defects No paratracheal tracheobronchial or bronchopulmonary adenopathy Soft nodular densities throughout both lungs most consistent with pneumonia but follow-up imaging is needed to document clearing Surgical clip posterior depth left breast 3:00 No pathologic axillary lymphadenopathy No focal liver or splenic lesions Absent gallbladder No pancreatic mass 10 mm left adrenal nodule No hydronephrosis No abdominal or pelvic lymphadenopathy Tiny fat-containing umbilical hernia No bowel obstruction Colonic diverticulosis Severe osteopenia Thoracic lumbar stabilization about a compressed L1 vertebral body, retropulsion of the posterior superior margin of this vertebral body 8 mm IMPRESSION: No mediastinal lymphadenopathy Numerous soft nodular densities throughout both lungs consistent with pneumonia but follow-up imaging needed to exclude early underlying pulmonary nodular metastatic disease No pathologic axillary lymphadenopathy Surgical clip left breast 3 o'clock position No visualized liver or splenic lesion 10 mm left adrenal nodule, recommend MRI abdomen adrenal gland follow-up pre and postcontrast No abdominal or pelvic lymphadenopathy Consider PET/CT scan follow-up for staging
[2025-07-14] MEDS: RINGERS LACTATED 1000 ML 1,000 ML 999 ML IV (10:48)
[2025-07-14 12:00] VITALS: BP 99/60; PULSE 68; PULSE 73; RESP 18; TEMP 36.6; O2SAT 97
[2025-07-14 13:41] LABS: HIV (1&2) Antibody Rapid Non-Reactive
[2025-07-14 14:29] LABS: Cocci Serology, IgG Negative (Negative)
--- NOTE | 2025-07-14 14:50 | PC.NURSE ---
May discharge after CT scan Per
--- NOTE | 2025-07-14 14:53 | ESDS_ITS ---
<Statement entered by Hugh Paulino MD - 07/14/25 15:46> I saw and examined patient personally and supervised PGY 1 resident, Dr. Craig with formulating a discharge plan. I agree with the documentation as listed below. Plan of care discussed with Attending Dr. Murtaza Paulino MD PGY 2 Disclaimer: This note was dictated by speech recognition. Minor errors in oil and gas field technician may be present due to voice recognition software. Planned Discharge Date 07/14/25 DS: Providers Provider Date of admission: 07/11/25 18:10 Primary care physician: Chinedu Finley PA-C Admitting Provider: Toñito Solomon DO Attending Provider on Admission: Toñito Solomon DO Consults: 07/12/25 03:59 Referral Infection Control Routine Comment: Reason for Infection Control Referral: Multiple ABX (>2) Patient In Isolation 07/13/25 10:11 Consult to Infectious Diseases Routine Comment: Neutropenic fever Consulting Provider: Moreno Godinez Attending Provider on DC: Desirae Hauser MD Discharging Provider: Desirae Hauser MD DS: Diagnosis Problem List Completed Was Problem List Reviewed/Reconciled?: Yes Hospital Course Hospital Course Hospital course: Summary: Shanika Prasad 50F pmhx significant for L invasive ductal breast carcinoma (dx 02/2025, Dr. Forde), hx of cervical cancer 10 y/a, depression/anxiety and asthma presented to [facility] ED 07/11 for one week of extreme weakness, fatigue, malaise, cough, chest pain and diarrhea following chemotherapy, admitted for shu tropenic fever. On 07/04, patient underwent chemotherapy with doxorubicin 106 mg and cyclophosphamide 1062 mg. Presented with one week of extreme weakness, fatigue, malaise and cough, latter causing chest pain, and three days of diarrhea following first session of chemotherapy. Sick contact (partner) at home. In ED, WBC 0.4 and ANC calculated to be 80, T max 102. Infectious workup negative: CXR neg. UA clean. Flu, RSV, cocci and COVID negative. Patient did endorse diarrhea, however C diff negative and stool studies negative and likely 2/2 chemotherapy. Patient was treated with empiric broad-spectrum antibiotics of ciprofloxacin and clindamycin due to anaphylactic reactions to cephalexin and penicillins however patient persistently fevered and patient was initiated on meropenem. However about 2 hours following meropenem and administration patient endorsed blurry vision, facial flushing and throat swelling and was treated with dexamethasone, racemic inhaled epinephrine, Benadryl and pepcid with resolution, and meropenem listed as an allergy. Patient's ANC and fevers resolved following broad-spectrum antibiotics. ID was consulted and recommended inpatient antibiotics and outpatient course. Of note, patient reports that she missed her CT chest abdomen pelvis imaging appointment for cancer staging and patient received imaging with patient. On discharge, patient hemodynamically stable, labs and vitals reviewed to be stable with ANC 1900 and patient afebrile for 24 hours, and patient is ready to be discharged back home. Imaging: CXR negative for acute processes. Discharge Recommendations: - Please take all medications as prescribed ? You have been started on an antibiotic, levofloxacin for your fever. Take once a day for the next 4 days to complete a total 7-day course. Start on 07/15 ? You been started on lactobacilli for your diarrhea, take as directed below. ? You have been started on guaifenesin for your cough, take up to 4 times a day as needed. ? Continue follow-up with cancer treat center and Dr. Forde upon discharge. - Follow up with Dr. Forde for the results of your CT chest/abdomen/pelvis results - Continue all home medications except as above - Please follow up with your PCP within one week of discharge - If your symptoms worsen, please seek immediate medical attention and return to your nearest emergency room. - If you do not have a PCP, you may follow up at the [facility] at [address] [place] [address] [address] [address], Hospital Diagnoses: #Neutropenic fever #Cough #L invasive ductal breast carcinoma (dx 02/2025) on chemo #Diarrhea #Asthma #Thrombocytopenia, improving #Hepatitis, improving Plan of care discussed with attending Dr. Hauser, and senior resident Dr. Paulino. Elina Craig, DO Internal Medicine, PGY-1 Time Spent with Patient Time attestation: Total time spent providing and/or coordinating discharge services: 38 minutes Time spent: Greater than 30 minutes Exam Vital Signs Temp Pulse Resp BP Pulse Ox O2 Del Method 97.8 F 68 18 99/60 97 Room Air 07/14/25 12:00 07/14/25 12:00 07/14/25 12:07/14/25 12:07/14/25 12:07/14/25 12:00 Narrative Exam GENERAL: AOx3, no acute distress HEENT: mucous membranes moist, bilateral sclera anicteric CARDIOVASCULAR: regular rhythm and rate, S1/S2 present, no murmurs appreciated, R chest port clean intact PULMONARY: trace wheezes bilaterally at bases ABDOMINAL: soft, non-distended, no rebound/guarding, bowel sounds hyperactive, non tender EXTREMITIES: no peripheral edema SKIN: warm and dry, intact, no rashes NEURO: CN II-XII grossly intact, no focal deficits, alert, following commands Discharge Plan Plan Patient Disposition: HOME (Self Care) Patient condition on transfer: Stable and Benefits outweigh risks Care Plan Goals: ? You have been started on an antibiotic, levofloxacin for your fever. Take once a day for the next 4 days to complete a total 7-day course. Start on 07/15 ? You been started on lactobacilli for your diarrhea, take as directed below. ? You have been started on guaifenesin for your cough, take up to 4 times a day as needed. ? Continue the rest of your home medication as before ? Continue follow-up with cancer treat center and Dr. Forde upon discharge. - Follow up with your primary doctor for the results of your CT chest/abdomen/pelvis results - Follow up with your primary care physician within 1 week of discharge. If you do not have a primary care physician, please follow up with the [facility] Residents clinic ([phone]) - If your Diarrhea does not improve, present to your primary doctor. ? If you experience any new, worsening or persistent symptoms either call your primary doctor, or dial 911 or present to the emergency department. Prescriptions/Referrals Prescriptions/Med Rec: New guaifenesin 100 mg/5 mL Liquid 200 mg PO QID 30 Days Qty: 1200 0RF Culturelle 10 billion cell Capsule 1 cap PO BID 10 Days Qty: 20 0RF levofloxacin 500 mg tablet 500 mg PO QDAY 3 Days Qty: 3 0RF Rx Instructions: Already received 4 days of treatment. 3 more days to complete 7 days total. Start on 07/15 Continued ibuprofen 800 mg tablet 800 mg PO TID PRN (Reason: pain) Qty: 30 0RF hydrocodone-acetaminophen 5-325 mg tablet 1 tab PO BID MDD 10 PRN (Reason: pain) Qty: 10 0RF famotidine 20 mg tablet 20 mg PO DAILY Patient Comments: TAKE 1 TABLET BY MOUTH ONCE DAILY [facility]: [facility] [Outside] Saurav Forde MD [Physician, Hematology & Oncology] Chinedu Finley PA-C [Primary Care Provider] Patient/Caregiver Discharge Instructions Education Materials: Neutropenia Print Language: Marshallese Stand Alone Forms: Ashly Award Info., Patient Portal Info Letter Discharge Order Discharge Orders: Discharge (Routine); Ordered 07/14/25 Ordered By: Hugh Paulino Quality Discharge Quality Measures VTE prophylaxis MD Attestestation MD Attestation I have seen and examined the patient. I was physically present for the reyes portions of the services provided including history, physical exam, diagnosis, treatment plans and orders. I agree with assessment and plan of care as documented by residents. Even though this this note was carefully revised there may still be minor errors in oil and gas field technician due to voice recognition software. Desirae Hauser MD
[2025-07-14 16:00] VITALS: BP 118/76; PULSE 68; PULSE 74; RESP 18; TEMP 36.4; O2SAT 97
[2025-07-15 21:15] LABS: Hepatitis C Antibody Non Reactive (Non React)
[2025-07-20 17:49] LABS: Source STOOL
[2025-07-23 07:07] LABS: Calprotectin, Stool* 11 mcg/g
== END 2025-07-14 17:35 | disposition home or self-care (01) | DRG 660 ==
LOC: SERX 17:57 → SERHOLD 19:26 → S2NX 23:22
PROVIDERS: Internal Medicine Infectious Disease; Nurse Practitioner Primary Care; Admitting Provider Student in an Organized Health Care Education/Training Program; Visit Provider Student in an Organized Health Care Education/Training Program
DX: D70.9 Neutropenia, unspecified (principal); C77.3 Secondary and unspecified malignant neoplasm of axilla and upper limb lymph nodes; Z85.41 Personal history of malignant neoplasm of cervix uteri; C50.919 Malignant neoplasm of unspecified site of unspecified female breast; R50.81 Fever presenting with conditions classified elsewhere; J45.909 Unspecified asthma, uncomplicated; D69.6 Thrombocytopenia, unspecified; S36.119A Unspecified injury of liver, initial encounter; T45.1X5A Adverse effect of antineoplastic and immunosuppressive drugs, initial encounter; E87.1 Hypo-osmolality and hyponatremia; E87.20 Acidosis, unspecified; F43.10 Post-traumatic stress disorder, unspecified; L29.9 Pruritus, unspecified; R19.7 Diarrhea, unspecified; K75.9 Inflammatory liver disease, unspecified; Z87.892 Personal history of anaphylaxis; Z88.0 Allergy status to penicillin; Z88.1 Allergy status to other antibiotic agents; Z90.710 Acquired absence of both cervix and uterus; Z98.1 Arthrodesis status
CPT/HCPCS: 36415; 71045; 71260; 74177; 80053; 80061; 80202; 81001; 83036; 83605; 83735; 83993; 84100; 84145; 84484; 85025; 85610; 85730; 86331; 86635; 86703; 86803; 87040; 87081; 87086; 87177; 87205; 87209; 87493; 87502; 87634; 87635; 93005; 94640; 96365; 96375; 99284; A4649; A9270; J0131; J0744; J1200; J1642; J1644; J2185; J2270; J2405; J2765; J2919; J3374; J3375; J3490; J7050; J7120; J7999; Q9967; S0077; J0737; J1836

== ENCOUNTER 2025-07-23 11:14 | Outpatient (RCR) | payer MEDICAID, SELFPAY ==
[2025-07-03 16:34] LABS: Basophils # (Auto) 0.0 Thou/mm3 (0.0-0.2); Basophils % (Auto) 1 % (0-2.5); Eosinophils # (Auto) 0.3 Thou/mm3 (0.0-0.5); Eosinophils % (Auto) 4 % (0-10); Hematocrit 37.2 % (36.0-46.0); Hemoglobin 12.7 g/dL (12.0-16.0); Immature Granulocytes Auto 0.01 Thou/mm3 (0.00-0.00); Lymphocytes # (Auto) 1.8 Thou/mm3 (1.0-4.8); Lymphocytes % (Auto) 32 % (10-50); Mean Corpuscular HGB Conc 34.1 g/dl (31.0-37.0); Mean Corpuscular Hemoglobin 30.8 pg (25.0-35.0); Mean Corpuscular Volume 90 fL (80-100); Monocytes # (Auto) 0.3 Thou/mm3 (0.0-0.8); Monocytes % (Auto) 5 % (0-12); Neutrophils # (Auto) 3.3 Thou/mm3 (1.8-7.7); Neutrophils % (Auto) 58 % (37-80); Nucleated Red Blood Cell # 0.00 Thou/mm3 (0.00-0.00); Nucleated Red Blood Cell % 0 /100 WBC (0); Platelet Count 236 Thou/mm3 (140-440); RDW Standard Deviation 40.7 fL (36.4-46.3); Red Blood Count 4.12 Miln/mm3 (4.00-5.20); White Blood Count 5.7 Thou/mm3 (3.6-11.0)
[2025-07-03 17:07] LABS: Alanine Aminotransferase 37 U/L (10-49); Albumin, Serum 4.7 gm/dL (3.5-5.0); Albumin/Globulin Ratio 1.4 (1.2-2.2); Alkaline Phosphatase 109 U/L (46-116); Anion Gap 12 (7-16); Aspartate Amino Transferase 27 U/L (0-34); BUN/Creatinine Ratio 17 Ratio (12-20); Bilirubin,Total 0.4 mg/dL (0.3-1.2); Blood Urea Nitrogen 10 mg/dL (9-23); Calcium 9.4 mg/dL (8.3-10.6); Calcium (Corrected) 9.4 mg/dL (8.5-10.1); Carbon Dioxide 26.4 mMol/L (20.0-31.0); Chloride 106 mMol/L (98-107); Creatinine (Component) 0.6 mg/dL (0.6-1.3); Globulin 3.3 gm/dL (2.3-3.5); Glucose 120 mg/dL (74-106); Osmolality,Calculated 286 (275-295); Potassium 3.6 mMol/L (3.4-5.1); Sodium 144 mMol/L (136-145); Total Protein 8.0 gm/dL (5.7-8.2); eGFR > 60 See Note
[2025-07-03 17:22] LABS: CA 15-3 5.9 U/mL (<32.4); Follicle Stimulating Hormone 41.77 mIU/mL (See Note)
[2025-07-11 06:26] LABS: Luteinizing Hormone* 21.2 mIU/mL
[2025-07-17 06:56] LABS: Estradiol, Free 0.12 pg/mL; Estradiol, Total 6 pg/mL
[2025-07-23 12:17] LABS: Basophils # (Auto) 0.0 Thou/mm3 (0.0-0.2); Basophils % (Auto) 1 % (0-2.5); Eosinophils # (Auto) 0.0 Thou/mm3 (0.0-0.5); Eosinophils % (Auto) 0 % (0-10); Hematocrit 32.6 % (36.0-46.0); Hemoglobin 11.0 g/dL (12.0-16.0); Immature Granulocytes Auto 0.13 Thou/mm3 (0.00-0.00); Lymphocytes # (Auto) 1.3 Thou/mm3 (1.0-4.8); Lymphocytes % (Auto) 29 % (10-50); Mean Corpuscular HGB Conc 33.7 g/dl (31.0-37.0); Mean Corpuscular Hemoglobin 32.0 pg (25.0-35.0); Mean Corpuscular Volume 95 fL (80-100); Monocytes # (Auto) 0.5 Thou/mm3 (0.0-0.8); Monocytes % (Auto) 11 % (0-12); Neutrophils # (Auto) 2.5 Thou/mm3 (1.8-7.7); Neutrophils % (Auto) 57 % (37-80); Nucleated Red Blood Cell # 0.00 Thou/mm3 (0.00-0.00); Nucleated Red Blood Cell % 0 /100 WBC (0); Platelet Count 441 Thou/mm3 (140-440); RDW Standard Deviation 46.1 fL (36.4-46.3); Red Blood Count 3.44 Miln/mm3 (4.00-5.20); White Blood Count 4.5 Thou/mm3 (3.6-11.0)
[2025-07-23 12:45] LABS: Alanine Aminotransferase 23 U/L (10-49); Albumin, Serum 3.7 gm/dL (3.5-5.0); Albumin/Globulin Ratio 1.3 (1.2-2.2); Alkaline Phosphatase 77 U/L (46-116); Anion Gap 8 (7-16); Aspartate Amino Transferase 21 U/L (0-34); BUN/Creatinine Ratio 14 Ratio (12-20); Bilirubin,Total 0.2 mg/dL (0.3-1.2); Blood Urea Nitrogen 7 mg/dL (9-23); Calcium 8.8 mg/dL (8.3-10.6); Calcium (Corrected) 9.0 mg/dL (8.5-10.1); Carbon Dioxide 25.0 mMol/L (20.0-31.0); Chloride 108 mMol/L (98-107); Creatinine (Component) 0.5 mg/dL (0.6-1.3); Globulin 2.8 gm/dL (2.3-3.5); Glucose 119 mg/dL (74-106); Osmolality,Calculated 280 (275-295); Potassium 3.6 mMol/L (3.4-5.1); Sodium 141 mMol/L (136-145); Total Protein 6.5 gm/dL (5.7-8.2); eGFR > 60 See Note
[2025-07-23 12:58] LABS: CA 15-3 7.3 U/mL (<32.4)
--- NOTE | 2025-07-23 23:49 | CTCFLWUP_ITS ---
Patient: EMMA CASTAÑEDA : 1975 MR#: [id number] Page 2 of 2 TELEHEALTH AUDIO FOLLOW UP NOTE DATE OF CONSULTATION: 07/23/2025 NAME: EMMA CASTAÑEDA ACCOUNT: [id number] : 1975 AGE: 50 REFERRING PHYSICIAN: Chinedu Finley MD PRIMARY PHYSICIAN: INTERVAL HISTORY: Patient patient is a 50-year-old woman who was recently admitted after first cycle of chemotherapy with Adriamycin and cyclophosphamide. The patient had neutropenia and also diagnosed with pneumonia. Patient received Neupogen. Patient had a CT scan chest abdomen done and was found to have a small nodule on the adrenal gland but no osteoblastic lesions or lymphadenopathy. Patient also had lung nodules likely secondary to pneumonia. Discussed with the general surgeon and the patient have a centralized breast mass. The chemotherapy was started with the aim to reduce the tumor size for observation of the breast. Patient unable to tolerate chemotherapy and also will not be able to have conservative surgery as tumor is large and involving the nipple. Given poor tolerance of chemotherapy will proceed with surgery and offer chemotherapy based on surgical staging. DIAGNOSIS: Malignant neoplasm of overlapping sites of left female breast [ICD10] C50.812 HISTORY OF PRESENT ILLNESS: 50-year-old female left breast cancer. OTHER MEDICAL HISTORY/CONDITIONS: Left breast invasive ducatal carcinoma - dx 05/17/25 Cervical cancer - 10yrs ago Depression/PTSD Asthma RLE vein surgery - 04/19; LLE vein sx sched 07/06/25 Lumbar spine surgery T-11-L-1 - January 2023 Abd hysterectomy - 2013 C- section x 4 - Last 1997 Cholecystectomy - 1997 Left eye surgery - as child FAMILY HISTORY: Mother:?Pat?cousin?-?colon?-?dx?43 Sibling: Pat cousin - breast-dx40's; pat plmw-ylkqmr-em 60's Children: Dtr- cervical -HPV - 25; Mat ksjx-yfekvki-nn 40's Cancer History:?Mat Ibvlcingvgt-lydnybvq-mw 52; pat gramdmother-unknown ca SOCIAL HISTORY: Occupational?History:?Unemployed Education?Level:?Completed 11th grade Marital?Status:? Tobacco?Use:?Denies ETOH Use:?Quit 5 yrs - Drank 18-30 beers / day x 20yrs Drug?Note:?Marijuana -Quit 10yrs ago - Socailly x 10yrs Social?History?Note:?Lives?with? HANDER IN HISTORY: Menarche?-?Age:?10 Menopause:?10?yrs?ago Hormone?Use:?Norplant?in?past :?4 Live?Births:?3 Age?1st?:?[age] MEDICATIONS: 1. albuterol-budesonide - 90-80 mcg/actuation 1 Puff(s) Every 4 Hours 2. dexamethasone - 4 mg 2 tab Daily 3. DULoxetine - 60 mg 1 Capsule Daily 4. gabapentin - 300 mg 1 Capsule Twice a Day 5. hydrocodone-acetaminophen - 5-325 mg 1 tab q6 6. OLANZapine - 5 mg 1 tab Daily 7. ondansetron - 8 mg 1 tab Daily 8. Pepcid - 20 mg 1 tab Daily 9. prazosin - 1 mg 1 Capsule Every day before sleep 10. prochlorperazine maleate - 5 mg 1 tab Daily 11. traMADol - 50 mg 1 tab Twice a Day 12. Tylenol - 325 mg 2 tab As directed 13. Zepbound - 10 mg/0.5 mL Weekly Medications Last Reconciled by Anna Moses RN on 05/29/2025 ALLERGIES: Penicillins; cephalexin; cephalexin REVIEW OF SYSTEMS: A complete 14-point review of systems was performed and is negative except as noted in interval history. PHYSICAL EXAMINATION: The patient appeared well-nourished, alert, and in no apparent distress via telephone appointment LABORATORY DATA: I have personally reviewed and interpreted each of the patient?s relevant lab tests, abnormal findings are below: ASSESSMENT/PLAN: Left breast cancer Advised patient to proceed with surgery as patient is given appointment by the end of this month Will decide on chemotherapy once patient has completed surgery and final staging Further chemotherapy held for now RTC in 4 weeks to review the surgical report Will get Oncotype DX once surgery is completed RETURN TO CLINIC: I reviewed the diagnosis, prognosis, and recommended treatment/procedure options with the patient (and/or their legal client service representative), including the potential benefits, risks, side effects and alternative therapies. We also discussed the option of no treatment and the possibility of clinical trial participation, if applicable. All questions were addressed, and they demonstrated understanding. They provided informed consent to proceed with the proposed plan of care. BILLING AND COMPLIANCE: I reviewed external records from providers outside my specialty as summarized above. I spent a total of 50 minutes on this patient?s care on the day of their visit excluding time spent related to any billed procedures. This time includes time spent with the patient as well as time spent documenting in the medical record, reviewing patients records and tests, obtaining history, placing orders, communicating with other healthcare professionals, counseling the patient, family or caregiver, and/or care coordination for the diagnoses above. I performed this evaluation using real-time Telehealth tools. Prior to initiating, the patient consented to perform this evaluation using Telehealth tools. Electronically Signed by: Saurav Forde MD T: 11:47 PM CC: PCP: Referring: Chinedu Finley This document was completed utilizing speech recognition software. Grammatical errors, random word insertions, pronoun errors, and incomplete sentences are an occasional consequence of this system due to software limitations, ambient noise, and hardware issues. Any formal questions or concerns about the content, text or information contained within the body of this dictation should be directly addressed to the provider for clarification.
== END 2025-07-25 23:59 | disposition home or self-care (01) ==
LOC: SCTC 11:14
PROVIDERS: Visit Provider Internal Medicine Hematology & Oncology
DX: Z51.11 Encounter for antineoplastic chemotherapy (principal); C50.112 Malignant neoplasm of central portion of left female breast; Z17.0 Estrogen receptor positive status [ER+]; Z17.21 Progesterone receptor positive status
CPT/HCPCS: 36591; 80053; 82670; 82681; 83001; 83002; 85025; 86300; 96367; 96372; 96409; 96411; 96413; 99195; 99424; 99425; A4216; J1100; J1434; J1642; J2405; J3490; J7040; J7050; J9000; J9075; Q3014; Q5111